=== PATIENT | male | born 1955 | race Caucasian/White ===

== ENCOUNTER → 2020-10-21 11:56 | Outpatient (CLI) | payer MEDICARE, SELFPAY ==
--- NOTE | 2020-10-21 12:03 | XR_ITS ---
PROCEDURE: XR LUMBAR SPINE MIN 4V CLINICAL INDICATION: MUSCLE SPASMS OF BACK Back pain COMPARISON: CR LS5 LUMBAR SPINE 5 VIEWS from 08/13/2015 FINDINGS: There is normal alignment. No acute fracture or dislocation is evident. There is slight loss of height anteriorly of L1 with anterior osteophytes from L1-L5. Left lateral osteophyte at L2-L3 appears somewhat larger. The joint spaces are well-preserved. No significant degenerative/arthritic changes. No erosive changes evident. Other findings:None. IMPRESSION: Degenerative changes with osteophytosis. No change with no acute finding. Dictated by: Tyler Paul MD 10/21/2020 15:16 Tyler Paul MD in [place] 10/21/2020 15:16
== END ==
PROVIDERS: PCP Family Medicine; Visit Provider Family Medicine
DX: M62.830 Muscle spasm of back (principal)
CPT/HCPCS: 72110

== ENCOUNTER 2022-04-19 22:13 | Emergency (ER) | payer MEDICARE, SELFPAY ==
[2022-04-19 22:52] VITALS: BP 196/85; PULSE 75; RESP 20; TEMP 36.8; O2SAT 96; BMI 36.5
--- NOTE | 2022-04-19 23:01 | CT_ITS ---
PROCEDURE INFORMATION: Exam: CT Abdomen And Pelvis Without Contrast Exam date and time: 04/19/22 11:27 PM Age: 67 years old Clinical indication: Abdominal pain; Flank; Left; Additional info: Flank pain TECHNIQUE: Imaging protocol: Computed tomography of the abdomen and pelvis without contrast. Radiation optimization: All CT scans at this facility use at least one of these dose optimization techniques: automated exposure control; mA and/or kV adjustment per patient size (includes targeted exams where dose is matched to clinical indication); or iterative reconstruction. COMPARISON: ABDPELW/O CT ABD PELVIS W/O CONTRAST 08/21/15 10:56 PM FINDINGS: Tubes, catheters and devices: None noted. Lungs: Lung bases appear clear. Heart: No significant coronary calcifications. No cardiomegaly. No significant pericardial effusion. Liver: Fatty liver. No mass. Gallbladder and bile ducts: Normal. No calcified stones. No ductal dilation. Pancreas: Normal. No ductal dilation. Spleen: Normal. No splenomegaly. Adrenal glands: Normal. No mass. Kidneys and ureters: 2 mm distal left ureteral calculus with mild left hydronephrosis and hydroureter. Bilateral perirenal foci of inflammatory change, possibly hemorrhage. 6.4 x 4.8 x 4.2 cm solid right renal mass, subtle but present on comparison with increase in size since 08/21/2015. Concern for renal cell carcinoma. Consider further evaluation with multiphase cross-sectional imaging. Stomach and bowel: Unremarkable. No obstruction. No mucosal thickening. Appendix: No evidence of appendicitis. Intraperitoneal space: Unremarkable. No free air. No significant fluid collection. Retroperitoneal space: No significant retroperitoneal inflammatory changes are noted. Vasculature: Unremarkable. No abdominal aortic aneurysm. Lymph nodes: Unremarkable. No enlarged lymph nodes. Urinary bladder: Unremarkable as visualized. Reproductive: Unremarkable as visualized. Bones/joints: Unremarkable. No acute fracture. Soft tissues: Unremarkable. IMPRESSION: 1. 2 mm distal left ureteral calculus with mild left hydronephrosis and hydroureter. 2. 6.4 x 4.8 x 4.2 cm solid right renal mass, subtle but present on comparison with increase in size since 08/21/2015. Concern for renal cell carcinoma. Consider further evaluation with multiphase cross-sectional imaging. 3. Bilateral perirenal foci of inflammatory change, possibly hemorrhage.
[2022-04-19 23:07] LABS: Microscopic, Urine URINE MICROSCOPIC (MICROSCOPIC)
[2022-04-19 23:08] LABS: Appearance,Urine CLEAR (Clear); Bilirubin,Urine Negative (Negative); Blood, Urine 3+ (Negative); Color,Urine YELLOW (Yellow); Glucose,Urine (UA) Negative (Negative); Ketones,Urine Negative (Negative); Leukocyte Esterase,Urine Negative (Negative); Nitrate,Urine Negative (Negative); PH,Urine 5.5 (5.0-8.5); Protein,Urine Negative (Negative); Specific Gravity, Urine >= 1.030 (1.005-1.030); Urobilinogen,Urine 0.2 EU/dl (0.2)
[2022-04-19 23:30] VITALS: BP 166/59; PULSE 67; O2SAT 94
[2022-04-19 23:32] LABS: Basophils # 0.2 K/mm3 (0-0.2); Basophils % 1.1 % (0.1-2.0); Eosinophils # 0.2 K/mm3 (0.0-0.4); Eosinophils % 1.4 % (0.1-12.0); Hematocrit 53.8 % (42.0-52.0); Hemoglobin 17.5 g/dL (14.1-18.0); Lymphocytes # 1.5 K/mm3 (0.7-4.5); Lymphocytes % 10.3 % (10-50); Mean Corpuscular HGB Conc 32.5 g/dL (31.8-35.4); Mean Corpuscular Hemoglobin 30.4 pg (27.0-31.2); Mean Corpuscular Volume 93.8 fl (80-94); Mean Platelet Volume 7.9 fl (7.4-10.4); Monocytes # 0.8 K/mm3 (0.1-1.0); Monocytes % 5.4 % (1.7-9.3); Neutrophils # 11.7 K/mm3 (1.8-7.8); Neutrophils % 81.9 % (37.0-80.0); Platelet Count 220 K/mm3 (142-424); Red Blood Count 5.74 M/mm3 (4.60-6.20); Red Cell Distribution Width 13.8 % (11.5-17.5); White Blood Count 14.3 K/mm3 (4.8-10.8)
[2022-04-19 23:37] LABS: Bacteria,Urine Trace /lpf
[2022-04-19 23:51] LABS: Alanine Aminotransferase 45 U/L (12-78); Albumin Level 4.2 g/dl (3.5-5.0); Albumin/Globulin Ratio 1.4 (1.1-1.8); Alkaline Phosphatase 114 U/L (38-126); Anion Gap 14.5 mEq/L (5-15); Aspartate Amino Transferase 52 U/L (17-59); Bilirubin,Total 1.6 mg/dl (0.2-1.3); Blood Urea Nitrogen 23 mg/dl (9-20); Carbon Dioxide 28 mmol/L (22.0-30.0); Chloride 101 mmol/L (98-107); Creatinine Clearance Estimated 79 mL/min (50-200); Estimated Glomerular Filt Rate 51 ml/min (>60); GFR (African American) 61 ML/MIN (>60); Glucose 254 mg/dl (74-100); Potassium 4.5 mmoL/L (3.5-5.1); Sodium 139 mmol/L (136-145); Total Protein,Serum 7.2 g/dl (6.3-8.2)
[2022-04-19 23:56] LABS: C-Reactive Protein 6.1 mg/L (0-4)
[2022-04-20] VITALS: BP 167/74; PULSE 60; O2SAT 97
[2022-04-20 00:07] LABS: Erythrocyte Sedimentation Rate 11 mm/hr (0-20)
[2022-04-20 00:10] LABS: Procalcitonin 0.103 ng/mL (0.0-2.0)
[2022-04-20 00:30] VITALS: BP 171/77; PULSE 60; O2SAT 97
[2022-04-20 01:00] VITALS: BP 169/77; PULSE 64; O2SAT 94
--- NOTE | 2022-04-20 01:05 | PC.NURSE ---
Pt states pain is much better and he is ready to go home.
--- NOTE | 2022-04-20 01:12 | HMH.EDABDPAI ---
Discharge Plan Disposition Patient Disposition: Home, Self-Care Prescriptions Prescriptions: New tamsulosin [Flomax] 0.4 mg capsule 0.4 mg PO DAILY Qty: 10 0RF No Action flu vacc qs 2018- (6 mos up) 60 mcg (15 mcg x 4)/0.5 mL suspension 0.5 ml IM ONCE Qty: 0.5 0RF Referrals Follow up/Referrals: Blaire Self MD [Primary Care Provider] - See instructions Vik Pina MD [Staff Physician] - See instructions Clinical Impressions Clinical Impression: Renal colic on left side, Mass of right kidney Instructions Patient Instructions: DI for Kidney Stones Discharge ED Provider: Ayden Olson Abdominal Pain HPI General Chief Complaint: Abdominal Pain Stated Complaint: vomiting and back pain Time Seen by Provider: 04/20/22 01:12 Mode of Arrival: Ambulatory Source of Information: Patient and Medical Record Limitations: No Limitations Description of Symptoms (Recalled from ER Triage Doc. by RN): Pt reports vomiting and left flank pain that radiates to his abdomen that started tonight around 8pm. History of Present Illness HPI narrative: acute lt flank pain with nausea which started tonight complaint: flank pain Onset (ago): hour(s) Consistency: intermittent Severity: moderate Radiation: L flank Associated symptoms: nausea and vomiting Related Data Previous Rx's Medication Instructions Recorded tamsulosin 0.4 mg capsule (Flomax) 0.4 mg PO DAILY #10 caps 04/20/22 Allergies Allergy/AdvReac Type Severity Reaction Status Date / Time No Known Allergies Allergy Unverified 07/26/17 14:36 PFSH PFS Social History Smoking Status: Current every day smoker alcohol intake: never current occupational status: employed Travel in the last 8 weeks: None ROS Obtained: Yes All systems reviewed & no additional complaints except as documented Physical Exam General General appearance: alert Head Head exam: normocephalic Eye Eye exam: Present PERRL and EOMI ENT ENT exam: Present mucous membranes dry Neck Neck exam: Present trachea midline Respiratory Respiratory exam: Present normal lung sounds bilaterally; Absent respiratory distress Cardiovascular Cardiovascular exam: Present regular rate Abdominal Exam Abdominal exam: Present soft; Absent rebound Extremities Exam Extremities exam: Present normal inspection Back Exam Back exam: Present CVA tenderness (L) Neurological Exam Neurological exam: Present alert, oriented X3 and CN II-XII intact Psychiatric Psychiatric exam: Present normal affect Skin Skin exam: Present intact Medical Decision Making Medical Records Medical records reviewed: Yes I reviewed the patient's medical records. Deo Inquiry Pt receiving controlled substance: No Vital Signs: 04/19/22 22:52 04/19/22 23:30 04/20/22 00:00 Temperature 98.2 F Temperature Source Oral Pulse Rate 67 60 Pulse Rate [Right Radial] 75 Respiratory Rate 20 Blood Pressure 166/59 H 167/74 H Blood Pressure [Right Arm] 196/85 H Blood Pressure Mean [Right Arm] 122 Blood Pressure Source [Right Arm] Automatic Cuff Blood Pressure Position [Right Arm] Sitting 02 Sat by Pulse Oximetry 96 94 L 97 Oxygen Delivery Method Room Air 04/20/22 00:30 04/20/22 01:00 Temperature Temperature Source Pulse Rate 60 64 Pulse Rate [Right Radial] Respiratory Rate Blood Pressure 171/77 H 169/77 H Blood Pressure [Right Arm] Blood Pressure Mean [Right Arm] Blood Pressure Source [Right Arm] Blood Pressure Position [Right Arm] 02 Sat by Pulse Oximetry 97 94 L Oxygen Delivery Method Lab Data Lab results reviewed: Yes I reviewed the patient's lab results. Lab Results 04/19/22 23:05: Urine Color Yellow, Urine Appearance Clear, Urine pH 5.5, Ur Specific [place] >= 1.030, Urine Protein Negative, Urine Glucose (UA) Negative, Urine Ketones Negative, Urine Blood 3+, Urine Nitrate Negative, Urine Bilirubin Negative, Urine Urobilinogen 0.2, Ur Leukocyte Estera
[2022-04-20 01:16] VITALS: BP 157/75; PULSE 75; RESP 16; TEMP 36.8; O2SAT 96
[2022-04-20 01:40] LABS: Hemoglobin A1C 7.3 % (4.0-6.0)
== END 2022-04-20 01:39 | disposition home or self-care (01) ==
PROVIDERS: Emergency Provider Emergency Medicine; PCP Family Medicine
DX: N13.2 Hydronephrosis with renal and ureteral calculous obstruction (principal); M54.50 Low back pain, unspecified; N28.89 Other specified disorders of kidney and ureter; F17.210 Nicotine dependence, cigarettes, uncomplicated
CPT/HCPCS: 74176; 80053; 81001; 83036; 84145; 85025; 85651; 86140; 96361; 96374; 96375; 99284; J2405

== ENCOUNTER → 2022-05-18 13:21 | Outpatient (CLI) | payer MEDICARE, SELFPAY ==
[2022-05-18 14:50] LABS: Blood Urea Nitrogen 20 mg/dl (9-20); Estimated Glomerular Filt Rate 60 ml/min (>60); GFR (African American) 73 ML/MIN (>60)
== END ==
PROVIDERS: PCP Family Medicine; Visit Provider Urology
DX: Z01.812 Encounter for preprocedural laboratory examination (principal); D49.511 Neoplasm of unspecified behavior of right kidney
CPT/HCPCS: 36415; 82565; 84520

== ENCOUNTER → 2022-05-19 08:39 | Outpatient (CLI) | payer MEDICARE, SELFPAY ==
--- NOTE | 2022-05-19 08:44 | CT_ITS ---
FINAL REPORT CLINICAL HISTORY: RENAL MASS, recent scan in the ER for kidney stone left and mass seen on right kidney COMPARISON: April 19, 2022 FINDINGS: CT ABDOMEN with and without: PROCEDURE: Axial images were obtained from the lung base to the iliac crest by computed tomography before and after the administration of contrast. Coronal reformatted images were submitted. This study was performed with techniques to keep radiation doses as low as reasonably achievable (ALARA). Individualized dose reduction techniques using automated exposure control or adjustment of mA and/or kV according to the patient's size were employed. ABDOMEN: There is mild bibasilar atelectasis. There is mild fatty infiltration of the liver. There is a 13 mm low-attenuation focus in the left liver dome of uncertain etiology that may represent focal fatty infiltration. There is mild nonspecific gallbladder wall thickening. The spleen, pancreas, and adrenal glands are unremarkable. There is a 4.3 cm cyst in the mid left kidney. There is a 6.4 x 4.0 heterogeneous enhancing mass in the anterior right kidney consistent with renal neoplasm, likely renal cell carcinoma. There is heterogeneous decreased attenuation in the right lower pole renal vein on series 5, image 59 and coronal image 44 consistent with tumor thrombus in this vein. This does not extend to the main right renal vein or IVC. There are multiple mixed attenuation nodules and stranding in the bilateral para renal regions of uncertain etiology that may represent neoplasm or postinflammatory change. There are several borderline sized and mildly enlarged para-aortic lymph nodes measuring up to 1.5 cm that are nonspecific and favored to be reactive over neoplastic. The appendix is unremarkable. IMPRESSION: Anterior right renal mass with an appearance consistent with renal neoplasm. Likely renal cell carcinoma. Tumor thrombus in the lower pole right renal vein without extension to the main right renal vein or IVC. Mixed attenuation nodules and stranding in the bilateral para renal regions of uncertain etiology that may represent neoplasm or postinflammatory change. If indicated some of this would be accessible to CT-guided percutaneous biopsy. Nonspecific para-aortic adenopathy is favored reactive over neoplastic. Left renal cyst. Reviewed, Interpreted and Dictated by Brijesh Wayne III, MD Transcribed by Marty Mason Authenticated and . [facility]
== END ==
PROVIDERS: PCP Family Medicine; Visit Provider Urology
DX: N28.89 Other specified disorders of kidney and ureter (principal)
CPT/HCPCS: 74170; Q9967

== ENCOUNTER → 2022-09-16 10:20 | Outpatient (CLI) | payer MEDICARE, SELFPAY ==
--- NOTE | 2022-09-16 10:24 | CT_ITS ---
FINAL REPORT TECHNIQUE: Axial images through the abdomen and pelvis were performed without contrast.This study was performed with techniques to keep radiation doses as low as reasonably achievable, (ALARA). Individualized dose reduction techniques using automated exposure control or adjustment of mA and/or kV according to the patient's size were employed. CLINICAL HISTORY: RENAL CELL CARCINOMA COMPARISON: 05/19/2022 FINDINGS: ABDOMEN: The lung bases are clear. The heart size is normal. Limited images of the liver demonstrate moderate fatty infiltration. Gallbladder is present and contains sludge or stones in the dependent portion. The spleen is normal. There is mild nodularity to the right adrenal gland which is unchanged from prior exam. Findings are best seen on image 40 of series 3. The aorta is normal in caliber. There is no significant free fluid or adenopathy. There has been interval right nephrectomy. Again seen are multiple cystic structures measuring up to 4.5 cm within the left kidney and multiple perinephric nodules which are unchanged. Similar appearing nodules, previously seen on the right are no longer identified. PELVIS: The appendix is not identified. The urinary bladder is contracted. There is no significant free fluid or adenopathy. IMPRESSION: Interval right nephrectomy. Mild nodularity to the right adrenal gland, stable, favor adenoma. Stones or sludge in the gallbladder. Mild left perinephric nodular densities which are indeterminate but stable from prior exam suggestive of benign etiology. Continued follow-up recommended. Reviewed, Interpreted and Dictated by Jason Bhatt MD Transcribed by Lynsey Wynne Authenticated and [facility]
== END ==
PROVIDERS: PCP Family Medicine; Visit Provider Urology
DX: C64.9 Malignant neoplasm of unspecified kidney, except renal pelvis (principal)
CPT/HCPCS: 74176

== ENCOUNTER → 2023-01-13 13:12 | Outpatient (CLI) | payer MEDICARE, SELFPAY ==
--- NOTE | 2023-01-13 13:19 | XR_ITS ---
FINAL REPORT CLINICAL HISTORY: RENAL CELL CARCINOMA COMPARISON: None FINDINGS: There is evidence of old calcified granulomatous disease. No acute infiltrate. The mediastinum has a normal appearance. The cardiac silhouette is unremarkable. IMPRESSION: No acute process. Reviewed, Interpreted and Dictated by Quinton Hutchison MD Transcribed by Birgit Aceves Authenticated and [facility]
== END ==
PROVIDERS: PCP Family Medicine; Visit Provider Urology
DX: C64.9 Malignant neoplasm of unspecified kidney, except renal pelvis (principal)
CPT/HCPCS: 71046

== ENCOUNTER → 2023-02-09 11:38 | Outpatient (CLI) | payer MEDICARE, SELFPAY ==
--- NOTE | 2023-02-09 11:44 | XR_ITS ---
FINAL REPORT CLINICAL HISTORY: RT HIP AND THIGH PAIN FINDINGS: The right hip Three views were obtained. There is no acute fracture or dislocation. There are [id number] degenerative changes of the right hip. There are mild degenerative changes of the left hip. No soft tissue abnormality is identified. IMPRESSION: Degenerative changes as above, right greater than left. Reviewed, Interpreted and Dictated by Brijesh Wayne III, MD Transcribed by Reina Batista Authenticated and [facility]
== END ==
PROVIDERS: PCP Family Medicine; Visit Provider Family Medicine
DX: M25.551 Pain in right hip (principal); M79.651 Pain in right thigh
CPT/HCPCS: 73502

== ENCOUNTER → 2023-07-07 13:35 | Outpatient (CLI) | payer MEDICARE, SELFPAY ==
--- NOTE | 2023-07-07 13:41 | XR_ITS ---
FINAL REPORT TECHNIQUE: 5 views CLINICAL HISTORY: BACK PAIN, no known injury. COMPARISON: 10/21/2020 FINDINGS: There is mild loss of height of the L1 vertebral body, stable since the prior exam of 2020. There is degenerative disc disease present at the T12 and L1 levels. There is no malalignment. IMPRESSION: No acute process. Mild loss of height of the L1 vertebral body, stable. Reviewed, Interpreted and Dictated by Jason Bhatt MD Transcribed by Doris Lazcano Authenticated and [facility]
== END ==
PROVIDERS: PCP Family Medicine; Visit Provider Family Medicine
DX: M54.9 Dorsalgia, unspecified (principal); M54.50 Low back pain, unspecified
CPT/HCPCS: 72110

== ENCOUNTER 2024-01-16 16:32 | Outpatient (CLI) | payer MEDICARE, SELFPAY ==
--- NOTE | 2024-01-16 16:39 | MR_ITS ---
FINAL REPORT CLINICAL HISTORY: LUMBAGO OF LUMBAR REGION FINDINGS: Multiplanar MR imaging of the lumbar spine was performed without contrast. On the sagittal T2-weighted images, disc degeneration is seen at multiple levels. The vertebral alignment is normal. A mild chronic L1 compression fracture is noted. Several hemangiomas are present. There are mild endplate changes at several levels. The conus has an unremarkable appearance. T12-L1: An annular bulge is present with bilateral facet arthropathy. Mild right neural foraminal narrowing is seen. L1-2: An annular bulge is present. Vertebral osteophytes and bilateral facet arthropathy are present. Mild bilateral neural foraminal narrowing is seen. L2-3: An annular bulge is present. Vertebral osteophytes and bilateral facet arthropathy are present. Severe right and moderate left neural foraminal narrowing is seen. L3-4: An annular bulge is present. Mild bilateral neural foraminal narrowing is seen. L4-5: An annular bulge is present. Moderate bilateral neural foraminal narrowing is seen. L5-S1: An annular bulge is present. There is mild facet arthropathy. A posterior midline annular tear is seen with a small central disc protrusion. Mild bilateral neural foraminal narrowing is seen. IMPRESSION: Multilevel degenerative disc disease and spondylosis as described. Small central L5-S1 disc protrusion. Authenticated and [facility]
[2024-01-16 18:10] LABS: POC Glucose,Bedside 73 (70-110)
[2024-01-16 18:10] LABS: POC Glucose,Bedside 85 (70-110)
== END 2024-01-16 23:59 | disposition home or self-care (01) ==
LOC: RAD 16:32
PROVIDERS: PCP Nurse Practitioner; Visit Provider Nurse Practitioner
DX: M54.40 Lumbago with sciatica, unspecified side (principal)
CPT/HCPCS: 72148; 82962

== ENCOUNTER 2024-01-31 12:05 | Outpatient (CLI) | payer MEDICARE, SELFPAY ==
--- NOTE | 2024-01-31 12:16 | XR_ITS ---
FINAL REPORT CLINICAL HISTORY: RENAL CELL CARCINOMA COMPARISON: 01/13/2023 FINDINGS: No acute pulmonary density is evident. There is no evidence of effusion or other pleural disease. The mediastinum has a normal appearance. There is a calcification in the right hilum stable since the prior exam. The cardiac silhouette is unremarkable. IMPRESSION: Unremarkable chest exam. Reviewed, Interpreted and Dictated by Quinton Hutchison MD Transcribed by Doris Lazcano Authenticated and [facility]
== END 2024-01-31 23:59 | disposition home or self-care (01) ==
LOC: RAD 12:07
PROVIDERS: PCP Family Medicine; Visit Provider Urology
DX: C64.9 Malignant neoplasm of unspecified kidney, except renal pelvis (principal)
CPT/HCPCS: 71046

== ENCOUNTER 2024-06-27 10:08 | Outpatient (CLI) | payer MEDICARE, SELFPAY ==
--- NOTE | 2024-06-27 | CA_ITS ---
APPROVED REPORT Exam: Pharmacologic Technologist: Puja Kaba Ht: 5 ft 8 in Wt: 247 lbs BSA: 2.24 m2 HR: 247 bpm BP: 165/79 mmHg Rhythm: SInus armani, slow R wave progression Medical History Cardiac Risk Factors: HTN, , Diabetes (non-insulin), Smoking Stress Test Details HR Resting HR: 52 bpm Max Heart Rate (APMHR): 151.539549 bpm Target HR (85% APMHR): 128.170608 bpm Recovery HR: 69 bpm BP Resting BP: 165.0/79.0 mmHg Recovery BP: 169.0/76.0 mmHg ECG Resting ECG: sinus armani, slow R wave progression Stress ECG Conclusion During lexiscan pt experinced mild chest pressure. Occasioanl PVC noted. No significant ST changes. Unremarkable lexiscan stress. Electronically signed by : Melissa Toro MD 06/28/2024 01:40:49
--- NOTE | 2024-06-27 10:11 | CA_ITS ---
APPROVED REPORT EXAM: Comprehensive 2D, Doppler, and color-flow Echocardiogram Diving Fisher: Coleen Price RVT Ht: 5 ft 8 in Wt: 247lbs BSA: 2.24 BP: 146/72 mmHg Indications: CP,SOA,HTN,HX RENAL CA 2D Dimensions LA Volume 37.20 mL LA Volume Index 16.61 mL/m2 (M/F) 16-34 M-Mode Dimensions RVDd 3.09 cm (0.9-2.6) LA Diam 4.04 cm (1.9-4.0) LVDd 2.60 cm (3.5-5.7) LVDs 1.87 cm (3.5-5.7) IVSd 1.87 cm (0.6-1.1) PWd 1.18 cm (0.6-1.1) EF (Teich) 56.50% FS 28.10% EDV (Teich) 24.60 mL TAPSE 1.87 (<1.7) ESV (Teich) 10.70 mL LV Diastology E Decel Time 150 (160-240 msec) E/A Ratio 1.1 Aortic Valve GERMÁN Index 1.48 cm2/m2 AoV Peak Clark. 112.0 (50-130 cm/s) AO Peak GR. 5.10 mmHg AO Mean GR. 2.70 (<5 mmHg) AO VTI 22.8 (18-25 cm) GERMÁN (VTI) 3.40 (2.5-4.5 cm2) Mitral Valve MV E Max Clark. 71.0 (40-130 cm/s) MV A Velocity 63.0 (40-130 cm/s) E/A Ratio 1.12 MV PHT 44.0 ms Pulmonary Valve PV Peak Velocity 67.0 (50-150 cm/s) Tricuspid Valve TR P. Velocity 234.00 cm/s RAP Estimate 10.00 mmHg RVSP 31.90 mmHg Left Ventricle The left ventricle is normal size. The left ventricular systolic function is normal. The left ventricular ejection fraction is within the normal range. There is increased LV wall thickness. There is normal LV segmental wall motion. The left ventricular diastolic function is normal. LVEF is 55%. Right Ventricle Right ventricle is mildly dilated. The right ventricular systolic function is normal. Atria The left atrium size is normal. The right atrium size is normal. There is no Doppler evidence of interatrial shunt. The aortic valve opens well. Aortic Valve There is no aortic valvular stenosis. No aortic regurgitation is present. Mitral Valve The mitral valve is normal in structure. No evidence of mitral valve stenosis. Trace mitral valve regurgitation noted. Tricuspid Valve The tricuspid valve leaflets are thin and pliable. Trace tricuspid regurgitation. There is insufficient TR jet to estimate RVSP. Pulmonic Valve The pulmonary valve is normal in structure. Trace pulmonic regurgitation or Great Vessels The aortic root is normal in size. IVC is normal in size and collapses >50% with inspiration. Pericardium There is no pericardial effusion. Other Information Study Quality: Fair Conclusion Normal biventricular systolic function. Mild RV dilation. No significant valvular stenosis or regurgitation. Electronically signed by : Melissa Toro MD 07/03/2024 14:06:15
--- NOTE | 2024-06-27 10:37 | NM_ITS ---
APPROVED REPORT Exam: Nuclear Stress Test Indication: htn, dibetes, hyperlipidemia, tob use, fm. hx., c.p., sob, fatigue Patient Location: Outpatient Stress Tech: Puja [facility] Tech:Kate Foster ARRCathi RT (R)(N)(M) Ht: 5 ft 8 in Wt: 240 lbs HR: 52 bpm BP: 165/79 mmHg BSA: 2.21 m2 TID: 1.19 BMI: 36.4 History: htn, dibetes, hyperlipidemia, tob use, fm. hx., c.p., sob, fatigue Procedure: Patient received 0.4 mg of intravenous Lexiscan, resting heart rate 52 bpm, resting blood pressure 165/79 mmHg, with Lexiscan maximum heart rate achieved was 72 bpm which is % of the maximum predicted heart rate and blood pressure was 176/84 mmHg. With Lexiscan, patient denied any complaint of chest pain. Cardiac Stress and Resting SPECT Images: Cardiac Stress and Resting SPECT images were obtained using technetium 99m Myoview 32.0 mCi stress and 10.85 mCi at rest. Resting and stress imaging in supine and prone positions demonstrate no evidence of fixed or reversible perfusion defects. Gated imaging demonstrates normal global and regional LV systolic function. LVEF is calculated at 58%. Conclusion: No evidence of fixed or reversible perfusion defects. Gated imaging demonstrates normal global and regional LV systolic function. LVEF is calculated at 58%. Electronically signed by : Melissa Toro MD 06/28/2024 01:41:55
[2024-06-27] MEDS: SODIUM CHLORIDE 0.9% 10ML SYR (RAD ONLY) 10 ML IV ×2 (10:45→12:10)
[2024-06-27] MEDS: REGADENOSON 0.4MG/5ML SYRINGE 0.4 MG IV (12:10)
[2024-06-27] MEDS: ISOTOPE MYOVIEW (PER STUDY) 1 DOSE IV (13:27)
== END 2024-06-27 23:59 | disposition home or self-care (01) ==
LOC: RT 10:09
PROVIDERS: PCP Family Medicine; Visit Provider Nurse Practitioner Family
DX: I51.7 Cardiomegaly (principal); R06.02 Shortness of breath; R07.9 Chest pain, unspecified; R94.31 Abnormal electrocardiogram [ECG] [EKG]
CPT/HCPCS: 78452; 93017; 93018; 93306; A9502; J2785

== ENCOUNTER 2024-07-24 13:46 | Outpatient (CLI) | payer MEDICARE, SELFPAY ==
--- NOTE | 2024-07-24 13:51 | XR_ITS ---
FINAL REPORT CLINICAL HISTORY: RENAL CELL CARCINOMA COMPARISON: 01/31/2024 FINDINGS: 2 views of the chest were obtained . The heart is normal in size. The mediastinum is within normal limits. There is no acute lung disease. There is no pneumothorax. Osseous structures are unremarkable. IMPRESSION: No acute cardiopulmonary process, unchanged from prior exam. Reviewed, Interpreted and Dictated by Quinton Hutchison MD Transcribed by Lynsey Wynne Authenticated and [facility]
== END 2024-07-24 23:59 | disposition home or self-care (01) ==
LOC: RAD 13:47
PROVIDERS: PCP Family Medicine; Visit Provider Urology
DX: C64.9 Malignant neoplasm of unspecified kidney, except renal pelvis (principal)
CPT/HCPCS: 71046

== ENCOUNTER 2025-02-15 14:02 | Inpatient (IN) | payer MEDICARE, SELFPAY ==
[2025-02-15] VITALS (22 sets, daily range): BP systolic 140–198; BP diastolic 76–93; PULSE 58–77; RESP 13–23; TEMP 36.4–36.8; O2SAT 90–97; BMI 36.5; BMI 37.9
--- NOTE | 2025-02-15 14:04 | ECG_ITS ---
APPROVED REPORT Exam: Resting ECG HR:57 bpm ECG Measurements Heart Rate 57 AXES MS 176 P 56 QRSd 111 QRS 48 QT 409 T 86 QTc [address] elevation in II, III, AVF ST depression in 1, AVL Acute myocardial infarction Electronically signed by : Bro Gutierrez, 02/15/2025 16:48:00
--- NOTE | 2025-02-15 14:05 | PC.NURSE ---
pt placed in gown, shaved and placed on Zoll at this time. paged cardiology
[2025-02-15] MEDS: HEPARIN SODIUM 5,000 UNIT/ML VIAL 10000 UNIT IV (14:10)
[2025-02-15] MEDS: ASPIRIN 81MG CHEWABLE TABLET 324 MG PO (14:10)
--- NOTE | 2025-02-15 14:10 | IR_ITS ---
APPROVED REPORT Patient Location: Emergent Director Market Research: Ayden Banks RT (R) PROCEDURES 1. Left heart catheterization 2. Selective coronary arteriography 3. Left ventriculography 4. PTCA/stent of the right coronary artery 5. PTCA/stent of the posterior lateral branch of the right coronary artery INDICATION 1. Acute myocardial infarction, 2. Coronary artery disease SCAI INDICATION Patient is 69-year-old white male who presented with an acute myocardial infarction. Acute chest pain. Inferior elevation with reciprocal changes. Secondary to this patient was given heparin and Brilinta and taken directly to the cardiac catheterization laboratory. Informed consent was obtained prior to the procedure. COMPLICATIONS NONE Estimated Blood Loss: LESS THAN 10 ML TECHNIQUE One percent lidocaine used to anesthetize the right anterior aspect of the wrist. The right radial artery was accessed via the Seldinger technique. A 6 Maori sheath was placed in the right radial artery. 2.5 mg of Verapamil, 800 mcg of nitroglycerin, 1mg Lidocaine and 5000 U Heparin were given through the arterial sheath. The JL3 catheter was also used to perform left heart catheterization, left ventriculogram and selective coronary angiogram. At the end of the procedure the sheath was removed good hemostasis was achieved using Traclet band, patient was transferred to the postop holding area in stable condition. I also used a JL 3.5 catheter ANGIOGRAPHIC RESULTS The left main artery Angiographically normal The left anterior descending artery Smooth 20 to 30% napkin ring mid stenosis with normal flow into the distal vessel and normal flow to the diagonal branches The circumflex artery Small in size with mild luminal irregularities. Moderate size ramus intermedius with mild luminal irregularities The right coronary artery Large and dominant. Mild ectasia of the proximal and mid vessel with 100% distal occlusion. DWAYNE 0 flow to the posterior descending artery and posterior lateral branch The OBRIEN ventriculogram reveals Preserved normal left ventricular systolic function at 60%. No wall motion and maladies. No gradient on pullback of the catheter. No noted mitral insufficiency The left ventricular end-diastolic pressure 20 I immediately engaged the right coronary artery after access of the right radial artery. I did this with the Poppa catheter. Wired into the right coronary artery. Predilated with a 2.0 x 20 mm balloon in [address]'s [address] elevation started to improve. I realized I was in a branch. Pulm a wire back and placed it down the posterior lateral branch was of the largest of the 2 arteries. At this point I could see a small thrombus in the distal right coronary artery just prior to the bifurcation of the posterior descending artery and a large posterior lateral branch. I stented the distal right coronary artery with a 3.0 x 38 mm drug-eluting stent. This resulted in 0% residual stenosis and I did have brisk DWAYNE-3 flow down the posterior descending artery and posterolateral branches. The proximal posterior lateral branch also had a small thrombus at that level creating a 90% stenosis. Placed 1 more stent in the proximal posterior lateral branch of the right coronary artery which was a 3.0 x 18 mm drug-eluting stent. This resulted in 0% residual stenosis. No compromise of the posterior descending artery. Excellent DWAYNE-3 flow. Complete resolution of ST elevation. ACT was checked prior to the procedure which was greater than 250. I gave an additional 1000 of heparin. After the procedure the ACT dropped to around 215. Additional 2000 of heparin was given IMPRESSION 1. Critical 100% acute occlusion of the distal right coronary artery 2. Mild diffuse disease in the left coronary system 3. Preserved normal left ventricular systolic function 4. Elevated left ventricular end-diastolic pressure 5. Successful angioplasty and stenting of the distal right coronary artery resulting in 0% residual stenosis and DWAYNE-3 flow 6. Successful angioplasty and stenting of the proximal posterior lateral branch of the right coronary artery resulting in 0% residual stenosis and DWAYNE-3 flow 7. Successful placement of a radial band on the right radial artery PLAN 1. Patient was given Brilinta in the emergency room 180 mg. He will remain on 90 mg twice daily. Echocardiogram will be obtained. Aggressive risk factor modification. Patient now has full revascularization. Left ventricular function appears to be preserved. 1 dose of IV Lasix. Follow-up in cardiology clinic 1 to 2 weeks after discharge. Statin therapy should be initiated as well as metoprolol and CROW inhibitor as tolerated. Electronically signed by : Fredi Georges MD 02/15/2025 15:24:41
--- NOTE | 2025-02-15 14:13 | PC.NURSE ---
324mg chewable aspirin given per Eyal Gutierrez MD verbal order
[2025-02-15] MEDS: MORPHINE 4MG/ML SYRINGE 4 MG IV (14:14)
[2025-02-15] MEDS: ONDANSETRON 4MG/2ML VIAL 4 MG IV (14:14)
[2025-02-15 14:24] LABS: Hematocrit 52.9 % (42.0-52.0); Hemoglobin 17.7 g/dL (14.1-18.0); Immature Granulocytes % 0.6 %; Mean Corpuscular HGB Conc 33.5 g/dL (31.8-35.4); Mean Corpuscular Hemoglobin 28.7 pg (27.0-31.2); Mean Corpuscular Volume 85.9 fl (80-94); Nucleated Red Blood Cells % 0 %; Platelet Count 220 K/mm3 (142-424); Red Blood Count 6.16 M/mm3 (4.60-6.20); Red Cell Distribution Width-SD 39.9 fL; White Blood Count 12.7 K/mm3 (4.8-10.8)
--- NOTE | 2025-02-15 14:30 | PC.NURSE ---
house notified of admission
--- NOTE | 2025-02-15 14:30 | SUR.OPER ---
Per ED and stemi hand off sheet patient recieved 324 asa, 10,000 heparin, and 180 of brilinta prior to arrival in cathlab
[2025-02-15 14:31] LABS: Alanine Aminotransferase 32 U/L (12-78); Albumin Level 4.8 g/dl (3.5-5.0); Albumin/Globulin Ratio 1.3 (1.1-1.8); Alkaline Phosphatase 122 U/L (38-126); Anion Gap 19.3 mEq/L (5-15); Aspartate Amino Transferase 34 U/L (17-59); Bilirubin,Total 1.5 mg/dl (0.2-1.3); Blood Urea Nitrogen 26 mg/dl (9-20); Calcium 11.0 mg/dl (8.4-10.2); Carbon Dioxide 26 mmol/L (22.0-30.0); Chloride 101 mmol/L (98-107); Creatinine Clearance Estimated 51 mL/min (50-200); Creatinine,Serum 2.10 mg/dl (0.66-1.25); Estimated Glomerular Filt Rate 31 ml/min (>60); GFR (African American) 38 ML/MIN (>60); Globulin 3.6 g/dL (1.3-3.2); Glucose 170 mg/dl (74-100); Potassium 4.3 mmoL/L (3.5-5.1); Sodium 142 mmol/L (136-145); Total Protein,Serum 8.4 g/dl (6.3-8.2)
--- NOTE | 2025-02-15 14:31 | HMH.PHAINT1 ---
Pharmacy Intervention Comments: MEDICATION RECONCILIATION COMPLETED ON PATIENT USING EXTERNAL FILL HISTORY FROM PHARMACY. -KEN GO, TALD
--- OUTSIDE RECORDS SUMMARY | 2025-02-15 14:32 | XMS_ITS | Clinical Summary ---
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 Arthritis Family History Medical History Relation Name Comments Coronary artery disease Brother 1 Coronary artery disease Father Cancer Mother Diabetes Mother Breast cancer Sister 1 Relation Name Status Comments Brother 1 Alive Brother 2 Alive Brother 3 Alive Brother 4 Brother 5 Brother 6 Father (Age 71) Mother (Age 81) Sister 1 Alive Sister 2 Alive Social History Tobacco Use Types Packs/Day Years Used Date Smoking Tobacco: Some Days Cigarettes 0.3 55 Smokeless Tobacco: Current Snuff Tobacco Cessation:Ready to Q uit: Yes Alcohol Use Standard Drinks/Week Comments Yes 2 (1 standard drink = 0.6 oz pur e alcohol) Social Connection and Isolat ion Panel [NHANES] Answer Date Recorded In a typical week, how many times do you talk on the phone with family, friends, or neighbors? More than three times a week 06/01/2022 How often do you get togethe r with friends or relatives? Twice a week 06/01/2022 How often do you attend chur ch or mormon services? Never 06/01/2022 Do you belong to any clubs o r organizations such as islam groups, unions, fraternal or athletic groups, or school groups? No 06/01/2022 Attends Club or Organization Meetings Not on bubba e 06/01/2022 Are you , , di vorced, , never , or living with a partner? 06/01/2022 Overall Financial Resource Strain (CARDIA) Answe r Date Recorded How hard is it for you to pa y for the very basics like food, housing, medical care, and heating? Not hard at all 06/01/2022 Exercise Vital Sign Answer Date Recorde d On average, how many days pe r week do you engage in moderate to strenuous exercise (like a brisk walk)? 4 days 06/01/2022 On average, how many minutes do you engage in exercise at this level? 150+ min 06/01/2022 Hunger Vital Sign Answer Date Recorded Within the past 12 months, y ou worried that your food would run out before you got the money to buy more. Never true 06/01/20 22 Within the past 12 months, t he food you bought just didn't last and you didn't have money to get more. Never true 06/01/2022 PRAPARE - Transportation Answer Date Re corded In the past 12 months, has l ack of transportation kept you from medical appointments or from getting medications? No 06/05/2022 Lack of Transportation (Non-Medical) Not on file 06/05/2022 Food Insecurity Answer Date Recorded Food run out past 12 months Not on file 08/08 Food did not last past 12 months Not on file 08/26/2023 Employment Answer Date Recorded Help finding and keeping a job Not on file 0 08/26/2023 Family and Community Support Answer Brooks e Recorded Help with Day to Day Activities Not on file 08/26/2023 Feeling Lonely or Isolated Not on file 08/26 Educational Attainment Answer Date Lauro rded Speak language other than Faroese at home Not on file 08/26/2023 Want help with school or training Not on file 08/26/2023 Substance Use Answer Date Recorded Used prescription meds for non-medical reasons N ot on file 08/26/2023 Used illegal drugs past 12 months Not on file 08/26/2023 Sex and Gender Information Value Date Recorded Sex Assigned at Not on file Legal Sex Male 6:55 PM CDT Gender Identity Not on file Sexual Orientation Not on file Last Filed Vital Signs Vital Sign Reading Time Taken Comments Blood Pressure 154/85 06/05/2022 5:00 PM EDT Pulse 111 06/05/2022 9:57 AM EDT Temperature 36.4 C (97.5 F) 06/05/2022 9:57 AM EDT Respiratory Rate 16 06/05/2022 9:57 AM EDT Oxygen Saturation 91% 06/05/2022 9:57 AM EDT Inhaled Oxygen Concentration - - Weight 108.9 kg (240 lb) 06/03/2022 8:27 AM EDT Height 172.7 cm (5' 8 ) 06/03/2022 8:27 AM EDT Body Mass Index 36.49 06/03/2022 8:27 AM EDT Plan of Treatment Health Maintenance Due Date Last Done Comments Medicare Initial AWV [id number] CT Colonography 1955 Colonoscopy 1955 Colorectal Cancer Screening 1955 FOBT/FIT 1955 Fit-DNA (Cologuard) 1955 Sigmoidoscopy 1955 Depression Screening (12+) 1967 Hepatitis C Screening 1973 DTAP/TDAP/TD VACCINES (1 - Tdap) 1974 Pneumococcal 50+ years (1 of 2 - PCV) 1974 Shingles Vaccine (Zoster) (1 of 2) 1974 Tobacco Cessation Counseling and Screening (12+) 06/01/2023 06/01/2022 COVID-19 VACCINE (3 - season) 04/08/202401/2021, 10/24/2020 Falls Risk Screening 08/08/2024 Influenza Vaccine (#1) 2025 Respiratory Syncytial Virus (RSV) Adult or (1 - 1-dose 75+ series) 2030 Insurance MEDICARE [place] [address] [place] [address] SUPP Care Teams Manager Utilization Review Relationship Specialty Start Date End Date Humberto Self MD [address] [place] [address] PCP - General Family Medicine 06/01/22
--- OUTSIDE RECORDS SUMMARY | 2025-02-15 14:32 | XMS_ITS | Referral Summary ---
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 Never 06/01/2022 Do you belong to any clubs o r organizations such as quaker groups, unions, fraternal or athletic groups, or [...] money to buy more. Never true 06/01/20 Within the past 12 months, t he [...] Date Lauro rded Speak language other than Ecuadorean at home Not on file 08/26/2023 Want [...] 06/03/2022 8:27 AM EDT Plan of Treatment Not on file Insurance MEDICARE PART A B Care Teams Loan Secretary Relationship Specialty Start Date End Date Humberto Self MD [address] [place] [address] PCP - General Family Medicine 06/01/22
--- OUTSIDE RECORDS SUMMARY | 2025-02-15 14:33 | XMS_ITS | Data Portability ---
Author Organization [facility] [place] [facility] Address [address] [place] [address] Care Team Providers Care Area Counselor Name Role Phone ROCCO SAUNDERS Primary Care Provider Assessment No assessment recorded. Plan of Treatment Reminders Order Date Submit Date Provider Last Modified By Organization Details Last Modified Time Details Appointments None recorded. Lab urinalysis panel, auto 2023 024 [email or web address] [facility], [address], [place], [address], 4 22:48:39 urinalysis panel, auto 2023 024 [facility], [address], [address], [place], [address], 4 23:57:39 urinalysis panel, auto 2022 023 [email or web address] [facility], [address], [address], [place], [address], 3 21:13:29 urinalysis panel, auto 2022 023 [email or web address] [facility], [address], [address], [place], [address], 3 14:38:55 urinalysis panel, auto 2022 023 [email or web address] [facility], [address], [address], [place], [address], 3 15:08:07 Referral None recorded. Procedures None recorded. Surgeries None recorded. Imaging None recorded. Medication Orders tamsulosin 0.4 mg capsule 2022 023 [facility], [address], [address], [place], [address], 15:16:28 Patient TargetsNo targets recorded. Patient InstructionsNo instructions recorded. Reason for Referral None Reported. Results Created Date Observation Date Name Description Value Unit Range Abnormal Flag Note LastModifiedBy Organization Detail LastModifiedTime 10/05/1910/05/2022 urina lysis panel , auto Unknown Analyte Clean Catch Not Available [facility] [address], [place], [address], 10/05/2022 14:37:56 10/05/19 23 10/05/2022 urina lysis panel , auto Unknown Analyte Yellow Not Available [facility] [address], [place], [address], 10/05/2022 14:37:56 10/05/19 23 10/05/2022 urina lysis panel , auto Unknown Analyte Clear Not Available [facility] [address], [place], [address], 10/05/2022 14:37:56 10/05/19 23 10/05/2022 urina lysis panel , auto Unknown Analyte 1.025 Not Available [facility] [address], [place], [address], 10/05/2022 14:37:56 10/05/19 23 10/05/2022 urina lysis panel , auto Unknown Analyte 1.003- 1.035 Not Available [facility] [address], [place], [address], 10/05/2022 14:37:56 10/05/19 23 10/05/2022 urina lysis panel , auto Unknown Analyte 5.0 Not Available [facility] [address], [place], [address], 10/05/2022 14:37:56 10/05/19 23 10/05/2022 urina lysis panel , auto Unknown Analyte 5.0-8. 0 Not Available [facility] [address], [place], [address], 10/05/2022 14:37:56 10/05/19 23 10/05/2022 urina lysis panel , auto Unknown Analyte Negati ve Not Available [facility] [address], [place], [address], 10/05/2022 14:37:56 10/05/19 23 10/05/2022 urina lysis panel , auto Unknown Analyte Negati ve Not Available [facility] [address], [place], [address], 10/05/2022 14:37:56 10/05/19 23 10/05/2022 urina lysis panel , auto Unknown Analyte Negati ve Not Available Replaced by [facility] [address], [place], [address], 10/05/2022 14:37:56 10/05/19 23 10/05/2022 urina lysis panel , auto Unknown Analyte Negati ve Not Available [facility] [address], [place], [address], 10/05/2022 14:37:56 10/05/19 23 10/05/2022 urina lysis panel , auto Unknown Analyte 30 mg/dl (+) Not Available [facility] [address], [place], [address], 10/05/2022 14:37:56 10/05/19 23 10/05/2022 urina lysis panel , auto Unknown Analyte Negati ve Not Available [facility] [address], [place], [address], 10/05/2022 14:37:56 10/05/19 23 10/05/2022 urina lysis panel , auto Unknown Analyte Normal Not Available [facility] [address], [place], [address], 10/05/2022 14:37:56 10/05/19 23 10/05/2022 urina lysis panel , auto Unknown Analyte Normal Not Available [facility] [address], [place], [address], 10/05/2022 14:37:56 10/05/19 23 10/05/2022 urina lysis panel , auto Unknown Analyte Negati ve Not Available [facility] [address], [place], [address], 10/05/2022 14:37:56 10/05/19 23 10/05/2022 urina lysis panel , auto Unknown Analyte Negati ve Not Available [facility] [address], [place], [address], 10/05/2022 14:37:56 10/05/19 23 10/05/2022 urina lysis panel , auto Unknown Analyte Normal Not Available [facility] [address], [place], [address], 10/05/2022 14:37:56 10/05/19 23 10/05/2022 urina lysis panel , auto Unknown Analyte Normal 1 mg/dl Not Available [facility] [address], [place], [address], 10/05/2022 14:37:56 10/05/19 23 10/05/2022 urina lysis panel , auto Unknown Analyte Negati ve Not Available [facility] [address], [place], [address], 10/05/2022 14:37:56 10/05/19 23 10/05/2022 urina lysis panel , auto Unknown Analyte Negati ve Not Available [facility] [address], [place], [address], 10/05/2022 14:37:56 10/05/19 23 10/05/2022 urina lysis panel , auto Unknown Analyte Negati ve Not Available [facility] [address], [place], [address], 10/05/2022 14:37:56 10/05/19 23 10/05/2022 urina lysis panel , auto Unknown Analyte Negati ve Not Available [facility] [address], [place], [address], 10/05/2022 14:37:56 01/18/20 23 01/17/2023 urina lysis panel , auto Unknown Analyte Clean Catch Not Available [facility] [address], [place], [address], 01/17/2023 14:18:43 01/18/20 23 01/17/2023 urina lysis panel , auto Unknown Analyte Yellow Not Available [facility] [address], [place], [address], 01/17/2023 14:18:43 01/18/20 23 01/17/2023 urina lysis panel , auto Unknown Analyte Clear Not Available [facility] [address], [place], [address], 01/17/2023 14:18:43 01/18/20 23 01/17/2023 urina lysis panel , auto Unknown Analyte 1.020 Not Available [facility] [address], [place], [address], 01/17/2023 14:18:43 01/18/20 23 01/17/2023 urina lysis panel , auto Unknown Analyte 1.003- 1.035 Not Available [facility] [address], [place], [address], 01/17/2023 14:18:43 01/18/20 23 01/17/2023 urina lysis panel , auto Unknown Analyte 5.0 Not Available [facility] [address], [place], [address], 01/17/2023 14:18:43 01/18/20 23 01/17/2023 urina lysis panel , auto Unknown Analyte 5.0-8. 0 Not Available [facility] [address], [place], [address], 01/17/2023 14:18:43 01/18/20 23 01/17/2023 urina lysis panel , auto Unknown Analyte Negati ve Not Available [facility] [address], [place], [address], 01/17/2023 14:18:43 01/18/20 23 01/17/2023 urina lysis panel , auto Unknown Analyte Negati ve Not Available [facility] [address], [place], [address], 01/17/2023 14:18:43 01/18/20 23 01/17/2023 urina lysis panel , auto Unknown Analyte Negati ve Not Available [facility] [address], [place], [address], 01/17/2023 14:18:43 01/18/20 23 01/17/2023 urina lysis panel , auto Unknown Analyte Negati ve Not Available [facility] [address], [place], [address], 01/17/2023 14:18:43 01/18/20 23 01/17/2023 urina lysis panel , auto Unknown Analyte Trace Not Available [facility] [address], [place], [address], 01/17/2023 14:18:43 01/18/20 23 01/17/2023 urina lysis panel , auto Unknown Analyte Negati ve Not Available [facility] [address], [place], [address], 01/17/2023 14:18:43 01/18/20 23 01/17/2023 urina lysis panel , auto Unknown Analyte 250 mg/dl Not Available [facility] [address], [place], [address], 01/17/2023 14:18:43 01/18/20 23 01/17/2023 urina lysis panel , auto Unknown Analyte Normal Not Available [facility] [address], [place], [address], 01/17/2023 14:18:43 01/18/20 23 01/17/2023 urina lysis panel , auto Unknown Analyte Negati ve Not Available [facility] [address], [place], [address], 01/17/2023 14:18:43 01/18/20 23 01/17/2023 urina lysis panel , auto Unknown Analyte Negati ve Not Available [facility] [address], [place], [address], 01/17/2023 14:18:43 01/18/20 23 01/17/2023 urina lysis panel , auto Unknown Analyte Normal Not Available [facility] [address], [place], [address], 01/17/2023 14:18:43 01/18/20 23 01/17/2023 urina lysis panel , auto Unknown Analyte Normal 1 mg/dl Not Available [facility] [address], [place], [address], 01/17/2023 14:18:43 01/18/20 23 01/17/2023 urina lysis panel , auto Unknown Analyte Negati ve Not Available [facility] [address], [place], [address], 01/17/2023 14:18:43 01/18/20 23 01/17/2023 urina lysis panel , auto Unknown Analyte Negati ve Not Available [facility] [address], [place], [address], 01/17/2023 14:18:43 01/18/20 23 01/17/2023 urina lysis panel , auto Unknown Analyte Trace Not Available [facility] [address], [place], [address], 01/17/2023 14:18:43 01/18/20 23 01/17/2023 urina lysis panel , auto Unknown Analyte Negati ve Not Available [facility] [address], [place], [address], 01/17/2023 14:18:43 07/19/20 23 07/19/2023 urina lysis panel , auto Unknown Analyte Clean Catch Not Available Replaced by [facility] [address], [place], [address], 07/19/2023 14:40:49 07/19/20 23 07/19/2023 urina lysis panel , auto Unknown Analyte Yellow Not Available [facility] [address], [place], [address], 07/19/2023 14:40:49 07/19/20 23 07/19/2023 urina lysis panel , auto Unknown Analyte Clear Not Available [facility] [address], [place], [address], 07/19/2023 14:40:49 07/19/20 23 07/19/2023 urina lysis panel , auto Unknown Analyte 1.015 Not Available [facility] [address], [place], [address], 07/19/2023 14:40:49 07/19/20 23 07/19/2023 urina lysis panel , auto Unknown Analyte 1.003- 1.035 Not Available [facility] [address], [place], [address], 07/19/2023 14:40:49 07/19/20 23 07/19/2023 urina lysis panel , auto Unknown Analyte 5.0 Not Available [facility] [address], [place], [address], 07/19/2023 14:40:49 07/19/20 23 07/19/2023 urina lysis panel , auto Unknown Analyte 5.0-8. 0 Not Available [facility] [address], [place], [address], 07/19/2023 14:40:49 07/19/20 23 07/19/2023 urina lysis panel , auto Unknown Analyte Negati ve Not Available [facility] [address], [place], [address], 07/19/2023 14:40:49 07/19/20 23 07/19/2023 urina lysis panel , auto Unknown Analyte Negati ve Not Available [facility] [address], [place], [address], 07/19/2023 14:40:49 07/19/20 23 07/19/2023 urina lysis panel , auto Unknown Analyte Negati ve Not Available [facility] [address], [place], [address], 07/19/2023 14:40:49 07/19/20 23 07/19/2023 urina lysis panel , auto Unknown Analyte Negati ve Not Available [facility] [address], [place], [address], 07/19/2023 14:40:49 07/19/20 23 07/19/2023 urina lysis panel , auto Unknown Analyte Negati ve Not Available [facility] [address], [place], [address], 07/19/2023 14:40:49 07/19/20 23 07/19/2023 urina lysis panel , auto Unknown Analyte Negati ve Not Available [facility] [address], [place], [address], 07/19/2023 14:40:49 07/19/20 23 07/19/2023 urina lysis panel , auto Unknown Analyte >1000 mg/dl Not Available [facility] [address], [place], [address], 07/19/2023 14:40:49 07/19/20 23 07/19/2023 urina lysis panel , auto Unknown Analyte Normal Not Available [facility] [address], [place], [address], 07/19/2023 14:40:49 07/19/20 23 07/19/2023 urina lysis panel , auto Unknown Analyte Negati ve Not Available [facility] [address], [place], [address], 07/19/2023 14:40:49 07/19/20 23 07/19/2023 urina lysis panel , auto Unknown Analyte Negati ve Not Available [facility] [address], [place], [address], 07/19/2023 14:40:49 07/19/20 23 07/19/2023 urina lysis panel , auto Unknown Analyte Normal Not Available [facility] [address], [place], [address], 07/19/2023 14:40:49 07/19/20 23 07/19/2023 urina lysis panel , auto Unknown Analyte Normal 1 mg/dl Not Available [facility] [address], [place], [address], 07/19/2023 14:40:49 07/19/20 23 07/19/2023 urina lysis panel , auto Unknown Analyte Negati ve Not Available [facility] [address], [place], [address], 07/19/2023 14:40:49 07/19/20 23 07/19/2023 urina lysis panel , auto Unknown Analyte Negati ve Not Available [facility] [address], [place], [address], 07/19/2023 14:40:49 07/19/20 23 07/19/2023 urina lysis panel , auto Unknown Analyte Negati ve Not Available [facility] [address], [place], [address], 07/19/2023 14:40:49 07/19/20 23 07/19/2023 urina lysis panel , auto Unknown Analyte Negati ve Not Available [facility] [address], [place], [address], 07/19/2023 14:40:49 02/01/20 24 02/01/2024 urina lysis panel , auto Unknown Analyte Clean Catch Not Available [facility] [address], [place], [address], 02/01/2024 16:07:53 02/01/20 24 02/01/2024 urina lysis panel , auto Unknown Analyte Yellow Not Available [facility] [address], [place], [address], 02/01/2024 16:07:53 02/01/20 24 02/01/2024 urina lysis panel , auto Unknown Analyte Clear Not Available [facility] [address], [place], [address], 02/01/2024 16:07:53 02/01/20 24 02/01/2024 urina lysis panel , auto Unknown Analyte 1.020 Not Available [facility] [address], [place], [address], 02/01/2024 16:07:53 02/01/20 24 02/01/2024 urina lysis panel , auto Unknown Analyte 1.003- 1.035 Not Available [facility] [address], [place], [address], 02/01/2024 16:07:53 02/01/20 24 02/01/2024 urina lysis panel , auto Unknown Analyte 5.0 Not Available [facility] [address], [place], [address], 02/01/2024 16:07:53 02/01/20 24 02/01/2024 urina lysis panel , auto Unknown Analyte 5.0-8. 0 Not Available [facility] [address], [place], [address], 02/01/2024 16:07:53 02/01/20 24 02/01/2024 urina lysis panel , auto Unknown Analyte Negati ve Not Available [facility] [address], [place], [address], 02/01/2024 16:07:53 02/01/20 24 02/01/2024 urina lysis panel , auto Unknown Analyte Negati ve Not Available [facility] [address], [place], [address], 02/01/2024 16:07:53 02/01/20 24 02/01/2024 urina lysis panel , auto Unknown Analyte Negati ve Not Available [facility] [address], [place], [address], 02/01/2024 16:07:53 02/01/20 24 02/01/2024 urina lysis panel , auto Unknown Analyte Negati ve Not Available [facility] [address], [place], [address], 02/01/2024 16:07:53 02/01/20 24 02/01/2024 urina lysis panel , auto Unknown Analyte Negati ve Not Available [facility] [address], [place], [address], 02/01/2024 16:07:53 02/01/20 24 02/01/2024 urina lysis panel , auto Unknown Analyte Negati ve Not Available [facility] [address], [place], [address], 02/01/2024 16:07:53 02/01/20 24 02/01/2024 urina lysis panel , auto Unknown Analyte Normal Not Available [facility] [address], [place], [address], 02/01/2024 16:07:53 02/01/20 24 02/01/2024 urina lysis panel , auto Unknown Analyte Normal Not Available [facility] [address], [place], [address], 02/01/2024 16:07:53 02/01/20 24 02/01/2024 urina lysis panel , auto Unknown Analyte Negati ve Not Available [facility] [address], [place], [address], 02/01/2024 16:07:53 02/01/20 24 02/01/2024 urina lysis panel , auto Unknown Analyte Negati ve Not Available [facility] [address], [place], [address], 02/01/2024 16:07:53 02/01/20 24 02/01/2024 urina lysis panel , auto Unknown Analyte Normal Not Available [facility] [address], [place], [address], 02/01/2024 16:07:53 02/01/20 24 02/01/2024 urina lysis panel , auto Unknown Analyte Normal 1 mg/dl Not Available [facility] [address], [place], [address], 02/01/2024 16:07:53 02/01/20 24 02/01/2024 urina lysis panel , auto Unknown Analyte Negati ve Not Available [facility] [address], [place], [address], 02/01/2024 16:07:53 02/01/20 24 02/01/2024 urina lysis panel , auto Unknown Analyte Negati ve Not Available [facility] [address], [place], [address], 02/01/2024 16:07:53 02/01/20 24 02/01/2024 urina lysis panel , auto Unknown Analyte Negati ve Not Available [facility] [address], [place], [place], [address], 02/01/2024 16:07:53 02/01/20 24 02/01/2024 urina lysis panel , auto Unknown Analyte Negati ve Not Available [facility] [address], [place], [address], 02/01/2024 16:07:53 07/25/20 24 07/25/2024 urina lysis panel , auto Unknown Analyte Clean Catch Not Available [facility] [address], [place], [address], 07/25/2024 16:21:12 07/25/20 24 07/25/2024 urina lysis panel , auto Unknown Analyte Yellow Not Available [facility] [address], [place], [address], 07/25/2024 16:21:12 07/25/20 24 07/25/2024 urina lysis panel , auto Unknown Analyte Clear Not Available [facility] [address], [place], [address], 07/25/2024 16:21:12 07/25/20 24 07/25/2024 urina lysis panel , auto Unknown Analyte 1.020 Not Available [facility] [address], [place], [address], 07/25/2024 16:21:12 07/25/20 24 07/25/2024 urina lysis panel , auto Unknown Analyte 1.003- 1.035 Not Available [facility] [address], [place], [address], 07/25/2024 16:21:12 07/25/20 24 07/25/2024 urina lysis panel , auto Unknown Analyte 5.0 Not Available [facility] [address], [place], [address], 07/25/2024 16:21:12 07/25/20 24 07/25/2024 urina lysis panel , auto Unknown Analyte 5.0-8. 0 Not Available [facility] [address], [place], [address], 07/25/2024 16:21:12 07/25/20 24 07/25/2024 urina lysis panel , auto Unknown Analyte Negati ve Not Available [facility] [address], [place], [address], 07/25/2024 16:21:12 07/25/20 24 07/25/2024 urina lysis panel , auto Unknown Analyte Negati ve Not Available [facility] [address], [place], [address], 07/25/2024 16:21:12 07/25/20 24 07/25/2024 urina lysis panel , auto Unknown Analyte Negati ve Not Available [facility] [address], [place], [address], 07/25/2024 16:21:12 07/25/20 24 07/25/2024 urina lysis panel , auto Unknown Analyte Negati ve Not Available [facility] [address], [place], [address], 07/25/2024 16:21:12 07/25/20 24 07/25/2024 urina lysis panel , auto Unknown Analyte Trace Not Available [facility] [address], [place], [address], 07/25/2024 16:21:12 07/25/20 24 07/25/2024 urina lysis panel , auto Unknown Analyte Negati ve Not Available [facility] [address], [place], [address], 07/25/2024 16:21:12 07/25/20 24 07/25/2024 urina lysis panel , auto Unknown Analyte Normal Not Available [facility] [address], [place], [address], 07/25/2024 16:21:12 07/25/20 24 07/25/2024 urina lysis panel , auto Unknown Analyte Normal Not Available [facility] [address], [place], [address], 07/25/2024 16:21:12 07/25/20 24 07/25/2024 urina lysis panel , auto Unknown Analyte Negati ve Not Available Replaced by [facility] [address], [place], [address], 07/25/2024 16:21:12 07/25/20 24 07/25/2024 urina lysis panel , auto Unknown Analyte Negati ve Not Available [facility] [address], [place], [address], 07/25/2024 16:21:12 07/25/20 24 07/25/2024 urina lysis panel , auto Unknown Analyte Normal Not Available [facility] [address], [place], [address], 07/25/2024 16:21:12 07/25/20 24 07/25/2024 urina lysis panel , auto Unknown Analyte Normal 1 mg/dl Not Available [facility] [address], [place], [address], 07/25/2024 16:21:12 07/25/20 24 07/25/2024 urina lysis panel , auto Unknown Analyte Negati ve Not Available [facility] [address], [place], [address], 07/25/2024 16:21:12 07/25/20 24 07/25/2024 urina lysis panel , auto Unknown Analyte Negati ve Not Available [facility] [address], [place], [address], 07/25/2024 16:21:12 07/25/20 24 07/25/2024 urina lysis panel , auto Unknown Analyte Negati ve Not Available Replaced by [facility] [address], [place], [address], 07/25/2024 16:21:12 07/25/20 24 07/25/2024 urina lysis panel , auto Unknown Analyte Negati ve Not Available [facility] [address], [place], [address], 07/25/2024 16:21:12 09/16/19 23 09/16/2022 CT, abdom en, w/wo contr ast No observ ation record ed. [email or web address] [facility] [address], [place], [address], 10/21/2022 13:43:51 01/14/20 23 01/13/2023 XR, chest , 2 view No observ ation record ed. [email or web address] [facility] [address], [place], [address], 01/24/2023 16:58:14 01/31/20 24 01/31/2024 XR, chest , 2 view No observ ation record ed. [email or web address] [facility] [address], [place], [address], 02/02/2024 12:49:56 07/24/20 24 07/24/2024 XR, chest , 2 view No observ ation record ed. [email or web address] Not Available 2023 13:01:44 Result Notes None recorded. Procedures Surgical History Date Name Laterality Status Provider Name and Address Organization Details Recorded Time procedure on knee completed Patricia Lazcano [facility] 05/03/2022 11:07:02 Imaging Results None recorded. Procedure Notes None recorded. Medical Equipment None Reported. Allergies No known drug allergies Medications Name Sig Start Date Stop Date Status Note LastModified by Organization Details LastModified Time glimepiride 1 mg tablet Take 1 tablet every day by oral route. active Not Available Not Available No t Available tamsulosin 0.4 mg capsule Take 1 capsule every day by oral route. 2022 active Not Available Not Available Not Avai lable lisinopril 10 mg tablet Take 1 tablet every day by oral route. 06/23 completed Not Available Not Available Not Available amlodipine active Not Available Not Av ailable Not Available Tylenol active Not Available Not Avail able Not Available Glucosamine active Not Available Not A vailable Not Available Vitals Date Recorded Body height Body mass index (BMI) Body weight Provider Name and Address Organization Details Last Updated DateTime 10/05/2022 172.72 cm 37.3 kg/m2 691996.13 g Galina Raines [facility] 10/05/2022 14:37:48 Date Recorded Body height Body mass index (BMI) Body weight Provider Name and Address Organization Details Last Updated DateTime 01/17/2023 172.72 cm 35.7 kg/m2 006498.21 g Brandi Moreno [facility] 01/17/2023 14:17:53 Date Recorded Body height Body mass index (BMI) Body weight Provider Name and Address Organization Details Last Updated DateTime 02/01/2024 172.72 cm 36.6 kg/m2 960030.76 g [place] Prajapatishaw [facility] 02/01/2024 16:13:54 Date Recorded Body height Body mass index (BMI) Body weight Provider Name and Address Organization Details Last Updated DateTime 07/19/2023 172.72 cm 37.6 kg/m2 586571.32 g [place] [facility] 07/19/2023 14:35:39 Date Recorded Body height Body mass index (BMI) Body weight Provider Name and Address Organization Details Last Updated DateTime 07/25/2024 172.72 cm 36.6 kg/m2 500532.76 g Patricia Lazcano [facility] 07/25/2024 16:20:11 Social History Question Answer Notes LastModified by Organizat ion Details LastModified Time Tobacco Smoking Status Current Every Day Smoker Patricia Lazcano [facility] 05/03/2022 11:06:52 What Is Your Relationship Status? [email or web address] Information not available 05/03/2022 How Much Tobacco Do You Smoke? 0.5 PPD [email or web address] Information not available 05/03/2022 Sex: Unknown Functional Status Question Answer Note LastModified by Organization D etails LastModified Time What is your level of alcohol consumption? None [email or web address] Information not available 05/03/2022 Mental Status None recorded. Family History Relationship Description Onset Age of this Age Resolved Age Notes LastModified by Organization Details LastModified Time Father No current problems or disability [email or web address] Not available 05/03 11:06:40 Mother No current problems or disability [email or web address] Not available 05/03 11:06:40 Medical History No medical history recorded. Past Encounters Encounter ID Performer Location Encounter Start Date Encounter Closed Date Diagnosis/Indication Diagnosis SNOMED-CT Code Diagnosis ICD10 Code Diagnosis Note [id number] MD [facility] [address] [place] [address] 05/03/2022 10:29:07 05/03/2022 11:39:21 Renal mass 710656727 N28.89 follow-up 1 week with his repeat CT scan [id number] MD [facility] [address] [address] 05/24/2022 10:19:38 05/24/2022 11:06:41 Renal mass 849391522 N28.89 right-side d hand-calin fidencio laparoscop ic radical nephrectom y JAMAAL [id number] JUAN ADAMSON [facility] [address] [place] [address] 06/23/2022 15:16:42 06/23/2022 17:10:32 Renal cell carcinoma [id number] C64.9 Follow-up 3 months. He will have a chest x-ray and lab work at that time [id number] MD [facility] [address] [address] 10/05/2022 14:09:01 10/05/2022 17:30:30 Renal cell carcinoma [id number] C64.9 Follow-up 3 months. He will have a chest x-ray and lab work at that time Benign pro static hyperplasia with outflow obstruction 130213151 N40.1 [id number] JUAN ADAMSON MD [facility] [address] [address] 01/17/2023 13:51:49 01/17/2023 16:42:50 Renal cell carcinoma [id number] C64.9 Follow-up 6 months. Benign pro static hyperplasia with outflow obstruction [id number] N40.1 Continue tamsulosin [id number] JUAN ADAMSON MD [facility] [address] [address] 07/19/2023 13:29:23 07/19/2023 15:42:58 Renal cell carcinoma [id number] C64.9 Follow-up 6 months. Benign pro static hyperplasia with outflow obstruction [id number] N40.1 Continue tamsulosin [id number] JUAN ADAMSON MD [facility] [address] [address] 02/01/2024 15:50:57 02/01/2024 16:33:09 Renal cell carcinoma [id number] C64.9 Follow-up 6 months. With chest x-ray prior to visit [id number] JUAN ADAMSON MD [facility] [address] [address] 07/25/2024 15:25:04 07/25/2024 17:03:40 Renal cell carcinoma [id number] C64.9 Follow-up 6 months. With chest x-ray prior to visit Health Concerns Section Related Observation LastModified by Organization Detai ls LastModified Time None Recorded Concern Status LastModified by Organization Details LastModified Time None Recorded Advance Directives Directive None Recorded Payers Insurance Date Sequence Insurance Name Policy Number Policy Cruz Covered Member ID Cruz Member ID Guarantor Name 01/23/2025 2 [facility] Anirudh Live [id number] Luis Live 01/23/2025 1 [place] Ed Kimberly Live [id number] Luis Live Notes Date Note Type Note Provider Name and Address Organization Details Recorded Time 10/05/2022 text/html Patient is here for 3-1/2-month follow-up regarding previous right radical nephrectomy for renal cell carcinoma. He had some cancer extending into the hilar fat but all margins were clear. Had repeat scan earlier today which was acceptable and normal. He mentions some difficulty with urinary frequency and urgency. He has nocturia 3-4 times per night. We discussed a trial of tamsulosin. JUAN ADAMSON MD [address] [place] [address], [phone], [facility] 10/05/2022 18:25:56 01/17/2023 text/html Patient is here in follow-up of previous right radical nephrectomy for renal cell carcinoma. He had a repeat CT scan just prior to his last visit at the end of September. He had a chest x-ray last week which was reviewed. No obvious abnormalities noted. His chest x-ray was at [facility]. He has an upcoming physical by his PCP and we will await those labs, at his last visit in September started him on tamsulosin for obstructive urination symptoms. He has improved but still has nocturia 3-5 times per night. We discussed cystoscopy for further evaluation if this is bothersome. He is tolerant of symptoms. He will continue on tamsulosin. JUAN ADAMOSN MD [address] [place] [address], [phone], [facility] 01/17/2023 14:40:14 07/19/2023 text/html Patient is here for scheduled 6-month follow-up with previous history of right radical nephrectomy for renal cell carcinoma. He has no complaints. He had lab work earlier in the summer. His chest x-ray in January was acceptable. We discussed repeating his chest x-ray. He was also noted to have a large amount of glucose in his urine. He is on no therapy for diabetes. He is having some issues with urinary frequency and not starting on tamsulosin back in the spring. He occasionally has nocturia x 1 but often x 3-4. We discussed that his high glucose level in the urine may cause some of his frequency and in order to protect his kidney I believe he needs to have this addressed soon. He will check with Dr. Saunders for further evaluation in the near future[place], [address], [facility] 07/19/2023 21:14:39 02/01/2024 text/html Patient is here in follow-up regarding previous right radical nephrectomy for renal cell carcinoma. He had a chest x-ray at [facility] yesterday which was unremarkable. He has had recent lab work which was all acceptable. He takes tamsulosin for mild obstructive symptoms and typically has nocturia x 1. His urine specimen today is unremarkable. We discussed continued surveillance. He remains active. JUAN ADAMSON MD [facility] [place], [address], [facility] 02/01/2024 23:58:37 07/25/2024 text/html Patient is here for scheduled 6-month follow-up. He is now 2 years following right-sided radical nephrectomy for renal cell carcinoma. He feels well. He had a recent chest x-ray at [facility] which showed no acute processes. He has had recent lab work which was acceptable[place], [address], [facility] 07/26/2024 22:49:36
[2025-02-15] MEDS: LIDOCAINE 1% 10ML MDV 10 ML IJ (14:34)
[2025-02-15] MEDS: VERAPAMIL 2.5MG/ML 2ML VIAL 2.5 MG IV (14:34)
[2025-02-15] MEDS: 0.9 % SODIUM CHLORIDE 500 ML 25 ML IV (14:34)
[2025-02-15] MEDS: NITROGLYCERIN 800MCG/8ML SYR (CATH LAB) 800 MCG IA (14:34)
[2025-02-15] MEDS: HEPARIN 1,000 UNITS/500ML NS (CATH LAB) 3000 UNIT IV (14:34)
[2025-02-15 14:46] LABS: Troponin I < 0.01 ng/ml (0.00-0.034)
[2025-02-15] MEDS: HEPARIN 1,000 UNITS/ML 10ML VIAL (CATH LAB) 5000 UNIT IV (14:55)
[2025-02-15 14:57] LABS: Activated Partial Thrombo Time 22.5 seconds (22.8-30.6); INR 0.95 (0.9-1.1); Prothrombin Time 10.6 seconds (10.1-12.5)
--- NOTE | 2025-02-15 15:08 | ED_ITS ---
Discharge Plan Disposition Patient Disposition: Admitted Condition: Serious Clinical Impressions Clinical Impression: STEMI (ST elevation myocardial infarction) Discharge ED Provider: Bro Gutierrez General Chief Complaint: Chest Pain Stated Complaint: chest pain Time Seen by Provider: 02/15/25 14:08 Mode of Arrival: Wheelchair Source of Information: Patient and Medical Record Description of Symptoms (Recalled from ER Triage Doc. by RN): pt to the ED with left sided chest pain and SOB about an hour ago while mowing. pt is cool and diaphoretic on assessment. MD immediately to bedside upon arrival. History of Present Illness HPI narrative: This is a 69-year-old male patient, with past medical history of hypertension, diabetes, and tobacco abuse, who is presenting to the emergency department today for evaluation of severe chest pain. Patient states that he was mowing his lawn prior to arrival when he began experiencing severe crushing chest pain that is radiating to his back. He has never experienced pain like this before. He does not have a known history of coronary artery disease and he has never had a heart cath and has never underwent percutaneous coronary intervention. No history of lung disease that he is aware of. Related Data Home Medications ?Medication ?Instructions ?Recorded ?Confirmed amlodipine 10 mg tablet 10 mg PO DAILY 02/15/2502/05 glimepiride 4 mg tablet 4 mg PO DAILY 02/15/2502/15 pantoprazole 40 mg tablet,delayed 40 mg PO DAILY 02/1502/15/25 release rosuvastatin 5 mg tablet 5 mg PO HS 02/15/25 02/15/25 Allergies Allergy/AdvReac Type Severity Reaction Status Date / Time No Known Allergies Allergy Unverified 08/09/24 13:03 [facility] Disclaimer: The information contained in this section may have been updated after the patient was seen, as this information can be updated by other users. Medical History History of renal cell carcinoma Abnormal electrocardiogram [ECG] [EKG] Diabetes mellitus Hypertension SOB (shortness of breath) on exertion Chest pain History of cancer of kidney in adulthood Surgical History H/O right nephrectomy History of knee surgery History of kidney removal Social History Smoking Status: Current every day smoker alcohol intake: never current occupational status: employed Travel in the last 8 weeks?: None Have you lived/traveled outside US in past 30 days?: No Contact w/someone who lives/traveled outside US past 30 days?: No Exposure to someone with infectious disease in past 14 days?: No Do you have a fever (greater than 100.4 F or 38 C)?: No Have you tested positive for COVID-19?: No Exposed to someone with COVID-19 in past 14 days?: No Do you have a sore throat?: No Do you have a cough?: No Do you have any weakness?: No Do you have any diarrhea?: No Are you experiencing any unusual bleeding?: No Do you have any muscle aches/pain?: No Do you have any abdominal pain?: No Are you experiencing loss of taste or smell?: No Other Medical History Have you received the Pneumonia Vaccine: No ROS Obtained: Yes Systems reviewed as appropriate & no additional complaints except as documented Physical Exam General General appearance: other (In acute distress, appears critically ill) Comment: Diaphoretic Head Head exam: atraumatic and normocephalic Eye Eye exam: Present normal appearance, PERRL and EOMI ENT ENT exam: Present normal exam and normal oropharynx Neck Neck exam: Present full ROM and trachea midline Chest Chest inspection: Present normal inspection and symmetric chest wall rise Respiratory Respiratory exam: Present normal lung sounds bilaterally and other (Tachypneic) Cardiovascular Cardiovascular exam: Present normal rhythm and bradycardia Abdominal Exam Abdominal exam: Present soft; Absent distention or tenderness exam: Present deferred Neurological Exam Neurological exam: Present alert HEART Score HEART Score HEART Score assessment performed?: Yes History (anamnesis): Highly suspicious ECG: Significant ST-deviation Age: >65 years Risk factors: 3 or more risk factors Troponin: </= normal limit HEART Score: 8 Critical Care Critical Care Time Critical Care Time: Yes Attestation: On 02/15/25, the high probability of a clinically significant, sudden or life threatening deterioration of the following system(s) required my full and direct attention, intervention and personal management. The time I documented below is in addition to time spent performing reported procedures but includes the following listed in this critical care notation. Total Time Total Critical Care Time: 20 Medical Decision Making Deo Inquiry Pt receiving controlled substance: No Deo was queried for this patient: No Vital Signs Vital Signs: 02/15/25 14:11 02/15/25 14:25 Temperature 98.2 F Temperature Source Oral Oral Pulse Rate 60 Pulse Rate [Right] 60 Respiratory Rate 13 20 Blood Pressure 166/76 H Blood Pressure [Right Arm] 198/82 H Blood Pressure Mean [Right Arm] 120 Blood Pressure Source [Right Arm] Manual Cuff/ Doppler Blood Pressure Position [Right Arm] Supine 02 Sat by Pulse Oximetry 97 Oxygen Delivery Method Room Air Nasal Cannula Oxygen Flow Rate (LPM) 2 Lab Data Labs: Lab Results 02/15/25 14:08: WBC 12.7 H, RBC 6.16, Hgb 17.7, Hct 52.9 H, MCV 85.9, MCH 28.7, MCHC 33.5, RDW 13.0, Plt Count 220, MPV 9.8, Neut % (Auto) 67.0, Lymph % (Auto) 21.5, [place] % (Auto) 7.9, Eos % (Auto) 1.9, Baso % (Auto) 1.1, Neut # (Auto) 8.5 H, Lymph # (Auto) 2.7, [place] # (Auto) 1.0, Eos # (Auto) 0.2, Baso # (Auto) 0.1, PT 10.6, INR 0.95, APTT 22.5 L, Sodium 142, Potassium 4.3, Chloride 101, Carbon Dioxide 26, Anion Gap 19.3 H, BUN 26 H, Creatinine 2.10 H, Estimated Creat Clear 51, Estimated GFR 31 L, Est GFR ( Amer) 38 L, Glucose 170 H, Calcium 11.0 H, Total Bilirubin 1.5 H, AST 34, ALT 32, Alkaline Phosphatase 122, Troponin I < 0.01, Total Protein 8.4 H, Albumin 4.8, Globulin 3.6 H, Albumin/Globulin Ratio 1.3 02/15/25 14:08 02/15/25 14:08 Response Orders (Tests/Meds): ED MEDICATIONS Generic Name Dose Route Start Last Admin Trade Name Freq PRN Reason Stop Dose Admin Acetaminophen 650 mg 02/15/25 15:03 Acetaminophen 325mg Tab PO 03/17/25 15:02 Q4HP PRN Fever or Mild Pain (1-3) Hydrocodone Bitart/Acetaminophen 1 tab 02/15/25 15:03 Hydrocodone/Apap 5/325 Mg Tablet PO 03/17/25 15:02 Q4HP PRN Moderate Pain (4-6) Hydrocodone Bitart/Acetaminophen 2 tab 02/15/25 15:03 Hydrocodone/Apap 5/325 Mg Tablet PO 03/17/25 15:02 Q4HP PRN Severe Pain (7-10) Aspirin 81 mg 02/16/25 09:00 Aspirin Ec 81mg Tablet PO 03/18/25 08:59 DAILY KP Diazepam 5 mg 02/15/25 14:13 Diazepam 5mg Tablet PO 02/16/25 02:13 ONCE PRN Anxiety Fentanyl Citrate 50 mcg 02/15/25 14:13 Fentanyl 100mcg/2ml Vial IV 02/16/25 02:13 Q3MINP PRN Sedation Fentanyl Citrate 25 mcg 02/15/25 14:13 Fentanyl 100mcg/2ml Vial IV 02/16/25 02:13 Q3MINP PRN Sedation Flumazenil 0.2 mg 02/15/25 14:13 Flumazenil 0.1mg/Ml 5ml Vial IV 02/16/25 02:13 NEEDED PRN Sedation Heparin Sodium (Porcine) 5,000 unit 02/15/25 14:13 02/15/25 14:55 Heparin 1,000 Units/Ml 10ml Vial (Occupational Health Technician) IV 02/15/25 18:13 1,000 unit NEEDED PRN Administration Emergency Box Band Saw Operator Hydralazine HCl 20 mg 02/15/25 14:13 Hydralazine 20mg/Ml Vial IV 02/15/25 18:13 ONCE PRN sbp>160 Adenosine 180 mg/ Sodium 90 mls @ 587.855 mls/hr 02/15/25 14:13 Chloride IV 02/15/25 18:13 ONCE PRN fractional flow reserve 180 MCG/KG/MIN Adenosine 90 mg/ Sodium 90 mls @ 1,175.71 mls/hr 02/15/25 14:13 Chloride IV 02/15/25 18:13 ONCE PRN fractional flow reserve 180 MCG/KG/MIN Sodium Chloride 1,000 mls @ 25 mls/hr 02/15/25 14:15 02/15/25 14:34 Sod Chloride 0.9% 500ml Bag IV 02/16/25 14:13 25 mls/hr .Q25H KP Administration Labetalol HCl 20 mg 02/15/25 14:13 Labetalol 20mg/4ml Syringe IV 02/15/25 18:13 ONCE PRN sbp>160 Lorazepam 1 mg 02/15/25 14:13 Lorazepam 2mg/Ml Vial IV 02/16/25 02:13 ONCE PRN Anxiety Midazolam HCl 1 mg 02/15/25 14:13 Midazolam 2mg/2ml Vial IV 02/16/25 02:13 Q3MINP PRN Sedation Midazolam HCl 1 mg 02/15/25 14:13 Midazolam Hcl 1mg/Ml 5ml Vial IV 02/16/25 02:13 Q3MINP PRN Sedation Miscellaneous 1 each 02/15/25 15:03 Consider Pt For Dual Antiplatelet Therapy At Discharge-Stent NOTAPPLIC 03/17/25 15:02 NEEDED PRN Reminder for s/p stent Naloxone HCl 0.4 mg 02/15/25 14:13 Naloxone 0.4mg/Ml Vial IV 02/16/25 02:13 Q5MINP PRN Decreased Respirations Nitroglycerin 800 mcg 02/15/25 14:13 02/15/25 14:34 Nitroglycerin 800mcg/8ml Syr (Occupational Health Technician) IA 02/15/25 18:13 800 mcg NEEDED PRN Administration Emergency Box Band Saw Operator Nitroglycerin 0.4 mg 02/15/25 15:03 Nitroglycerin 0.4mg Sl Tablet SL 03/17/25 15:02 Q5MINP PRN Chest Pain Promethazine HCl 25 mg 02/15/25 14:13 Promethazine Hcl 25mg/Ml 1ml Vial IV 02/16/25 02:13 NEEDED PRN Nausea And Vomiting Protamine Sulfate 50 mg 02/15/25 14:13 Protamine Sulfate 50mg/5ml Vial (Occupational Health Technician) IV 02/15/25 18:13 ONCE PRN act>200 Sodium Chloride 10 ml 02/15/25 14:13 Sodium Chloride 0.9% 10ml Vial IV 03/17/25 14:12 NEEDED PRN to Dilute Lorazepam inj Ticagrelor 90 mg 02/16/25 09:00 Ticagrelor 90mg Tablet PO 03/18/25 08:59 BID KP Discontinued Medications Generic Name Dose Route Start Last Admin Trade Name Freq PRN Reason Stop Dose Admin Aspirin 325 mg 02/15/25 14:07 Aspirin 325mg Tablet PO 02/15/25 14:08 ONCE ONE Diphenhydramine HCl 50 mg 02/15/25 14:13 02/15/25 14:35 Diphenhydramine 50mg/Ml Vial IV 02/15/25 14:14 50 mg ONCE ONE Administration Heparin Sodium (Porcine) 10,000 unit 02/15/25 14:13 Heparin 1,000 Units/Ml 10ml Vial (Occupational Health Technician) IV 02/15/25 14:14 ONCE ONE Heparin Sodium/Sodium Chloride 3,000 unit 02/15/25 14:13 02/15/25 14:34 Heparin 1,000 Units/500ml Ns (Occupational Health Technician) IV 02/15/25 14:14 3,000 unit ONCE ONE Administration Lidocaine HCl 10 ml 02/15/25 14:13 02/15/25 14:34 Lidocaine 1% 10ml Mdv IJ 02/15/25 14:14 10 ml ONCE ONE Administration Lidocaine HCl 10 ml 02/15/25 14:13 02/15/25 14:37 Lidocaine 1% 5ml Pf Vial IJ 02/15/25 14:14 Not Given ONCE ONE Morphine Sulfate 4 mg 02/15/25 14:13 02/15/25 14:14 Morphine 4mg/Ml Syringe IV 02/15/25 14:14 4 mg ONCE ONE Administration Ondansetron HCl 4 mg 02/15/25 14:13 02/15/25 14:14 Ondansetron 4mg/2ml Vial IV 02/16/25 02:13 4 mg NEEDED PRN Administration Nausea Sodium Chloride 25 ml 02/15/25 14:13 Sodium Chloride 0.9% 25ml Bag IV 02/15/25 14:14 ONCE ONE Ticagrelor 180 mg 02/15/25 14:13 Ticagrelor 90mg Tablet PO 02/15/25 14:14 ONCE ONE Verapamil HCl 2.5 mg 02/15/25 14:13 02/15/25 14:34 Verapamil 2.5mg/Ml 2ml Vial IV 02/15/25 14:14 2.5 mg ONCE ONE Administration ORDERS Category Date Time Status Consult to Cardiac Rehabilitation [CONS] Routine Cons 02/15/25 15:07 Active Consult to Cardiology [CONS] Routine Cons 02/15/25 15:03 Active Activated Partial Thrombo Time Stat Lab 02/15/25 14:08 Completed Basic Metabolic Panel AMLAB Lab 02/16/25 06:00 Ordered CBC w/Auto Diff [Complete Blood Count Auto Diff] Stat Lab 02/15/25 14:08 Completed CMP [Comprehensive Metabolic Panel] Stat Lab 02/15/25 14:08 Completed Complete Blood Count Auto Diff AMLAB Lab 02/16/25 06:00 Ordered HIV Combo Stat Lab 02/15/25 14:08 Received Hepatitis C Ab Qual. W/ RFX Stat Lab 02/15/25 14:08 Received PT INR [Prothrombin Time INR] Stat Lab 02/15/25 14:08 Completed Troponin I Q3H Lab 02/15/25 17:30 Ordered Troponin I Q3H Lab 02/15/25 20:30 Ordered Troponin I Stat Lab 02/15/25 14:08 Completed ECG Request NEEDED Y 02/15/25 15:15 Ordered ECG Data Tracing #1: Attestation: I reviewed this ECG and interpreted as documented below: ECG Narrative: EKG personally interpreted by me demonstrates sinus bradycardia with a rate of 57 bpm, normal axis, no VA prolongation, narrow QRS, no QTc prolongation. There is ST elevation in leads II, III and aVF with reciprocal depressions in leads I and aVL as well as ST depressions in lead V2. MDM Narrative Medical Decision Narrative: In summary, this is a 69-year-old male patient who is presenting to the emergency department today for severe sudden onset central chest pain radiating to his back that onset while mowing the grass. Comorbidities include hypertension, diabetes, and tobacco abuse which is currently not goal therapy. On initial evaluation of the patient he was in acute painful distress and appeared critically ill. He is bradycardic but normotensive. His breath sounds were normal bilaterally. He is diaphoretic. Immediately after the patient was roomed we obtained an EKG which showed findings consistent with an inferior STEMI with reciprocal changes in the high lateral leads. Differential diagnosis included ST ovation myocardial infarction, coronary thrombosis, coronary dissection, among others. The Occupational Health Technician was activated. I then had an interactive discussion with the on- call electric meter repairer helper who requested that we administer 10,000 units of heparin and 180 mg of Brilinta to the patient. In addition to this we administered 325 mg of aspirin. Within 20 minutes of arrival the patient was transferred up to the cardiac catheterization lab. Following this I had an interactive discussion with the internal medicine service who agreed to admit the patient to their service and except primary responsibility of the patient moving forward.
[2025-02-15] MEDS: FENTANYL 100MCG/2ML VIAL 50 MCG IV (15:21)
[2025-02-15] MEDS: HEPARIN 1,000 UNITS/ML 10ML VIAL (CATH LAB) 10000 UNIT IV (15:21)
[2025-02-15] MEDS: MIDAZOLAM 2MG/2ML VIAL 1 MG IV (15:21)
[2025-02-15 15:31] LABS: Hepatitis C Ab Qual. W/ RFX NEGATIVE (Negative)
[2025-02-15 15:33] LABS: CATHL Activated Clotting Time 218 SEC (74-125)
[2025-02-15 15:34] LABS: CATHL Activated Clotting Time 262 SEC (74-125)
[2025-02-15] MEDS: IOPAMIDOL-370 (76%);100ML BOTTLE 150 ML IV (15:40)
[2025-02-15] MEDS: RINGERS SOLUTION,LACTATED 500 ML IV (18:35)
--- NOTE | 2025-02-15 19:18 | P.HP_ITS ---
History of Present Illness *Admission Date: 02/15/25 *Reason for visit:: Chest pain *History of present illness: Ed Walker is a 69-year-old male with medical history significant for type 2 diabetes, 50-year pack smoker, hypertension, GERD who presents with acute onset chest pain while mowing the lawn this afternoon. He states he felt questionable episode of chest pain with radiation to the back. Denies previous episodes like this. This prompted patient to come to the ED. On arrival, patient had ST elevations in the inferior leads and patient was taken to the Work Measurement Engineer during which she received 2 stents to the RCA. Patient tolerated procedure well. On my evaluation, patient was lying in bed comfortably without any distress. Case discussed with ED provider and decision was made to admit patient for STEMI. [facility] Disclaimer: The information contained in this section may have been updated after the patient was seen, as this information can be updated by other users. Medical History Achilles bursitis of left lower extremity History of renal cell carcinoma Abnormal electrocardiogram [ECG] [EKG] Diabetes mellitus Hypertension SOB (shortness of breath) on exertion Chest pain History of cancer of kidney in adulthood Surgical History H/O right nephrectomy History of knee surgery History of kidney removal Family History (Updated 02/15/25 @ 17:17 by Madison Nascimento RN) Other No significant family history Social History (Updated 02/15/25 @ 17:16 by Madison Nascimento RN) Smoking Status: Current every day smoker alcohol intake: never current occupational status: employed Travel in the last 8 weeks?: None Have you lived/traveled outside US in past 30 days?: No Contact w/someone who lives/traveled outside US past 30 days?: No Exposure to someone with infectious disease in past 14 days?: No Do you have a fever (greater than 100.4 F or 38 C)?: No Have you tested positive for COVID-19?: No Exposed to someone with COVID-19 in past 14 days?: No Do you have a sore throat?: No Do you have a cough?: No Do you have any weakness?: No Do you have any diarrhea?: No Are you experiencing any unusual bleeding?: No Do you have any muscle aches/pain?: No Do you have any abdominal pain?: No Are you experiencing loss of taste or smell?: No Other Medical History Have you received the Flu Vaccine for this season: No Have you received the Pneumonia Vaccine: Yes Meds Home Medications and Allergies Home Medications ?Medication ?Instructions ?Recorded ?Confirmed ?Type amlodipine 10 mg tablet 10 mg PO DAILY 02/15/2502/05 History aspirin 81 mg tablet 81 mg PO DAILY 02/15/2502/05 History glimepiride 4 mg tablet 4 mg PO DAILY 02/15/2502/15 History pantoprazole 40 mg tablet,delayed 40 mg PO DAILY 02/1502/15/25 History release New Prescriptions to Start Prescriptions: Allergies Allergy/AdvReac Type Severity Reaction Status Date / Time No Known Allergies Allergy Unverified 08/09/24 13:03 Exam Data for Last 24 hours Vital signs and Labs for Last 24 Hours: Temp Pulse Resp BP Pulse Ox O2 Del Method O2 Flow Rate 97.5 F L 58 L 17 170/93 H 95 Room Air 2 02/15/25 16:00 02/15/25 18:45 02/15/25 18:45 02/15/25 18:45 02/15/25 18:45 02/15/25 18:45 02/15/25 14:25 Laboratory Results - last 24 hr 02/15/25 14:08: WBC 12.7 H, RBC 6.16, Hgb 17.7, Hct 52.9 H, MCV 85.9, MCH 28.7, MCHC 33.5, RDW 13.0, Plt Count 220, MPV 9.8, Neut % (Auto) 67.0, Lymph % (Auto) 21.5, [place] % (Auto) 7.9, Eos % (Auto) 1.9, Baso % (Auto) 1.1, Neut # (Auto) 8.5 H, Lymph # (Auto) 2.7, [place] # (Auto) 1.0, Eos # (Auto) 0.2, Baso # (Auto) 0.1, PT 10.6, INR 0.95, APTT 22.5 L, Sodium 142, Potassium 4.3, Chloride 101, Carbon Dioxide 26, Anion Gap 19.3 H, BUN 26 H, Creatinine 2.10 H, Estimated Creat Clear 51, Estimated GFR 31 L, Est GFR ( Amer) 38 L, Glucose 170 H, Calcium 11.0 H, Total Bilirubin 1.5 H, AST 34, ALT 32, Alkaline Phosphatase 122, Troponin I < 0.01, Total Protein 8.4 H, Albumin 4.8, Globulin 3.6 H, Albumi n/Globulin Ratio 1.3, HCV Ab CHARLA w/Rflx PCR Qn Negative, HIV Ag/Ab Combo Qual Negative 02/15/25 14:20: Activated Clotting Time 262 H* 02/15/25 14:52: Activated Clotting Time 218 H* I & O for Last 24 hours: Intake & Output 02/12/25 02/13/25 02/14/25 02/15/25 23:59 23:59 23:59 23:59 Intake Total 335 / 335 Output Total 125 / 125 Balance 210 / 210 Weight 113.058 kg Constitutional Constitutional: no acute distress and obese *Routine HEENT Exam Head: Present normocephalic Eye: Present EOMI and PERRL ENT: Present mucous membranes moist *Routine Neck Exam Neck: Present supple; Absent lymphadenopathy *Routine Respiratory Exam Respiratory: Present CTA bilaterally *Routine Cardiovascular Exam Cardiovascular: Present RRR *Routine Abdominal Exam Abdominal: Present soft and normoactive bowel sounds; Absent tenderness *Routine Rectal Exam Rectal:: deferred *Routine Genitalia Exam Genitalia:: deferred *Routine Extremities Exam Extremities: Absent cyanosis, clubbing or edema *Routine Skin Exam Skin: Present warm; Absent rash *Routine Neurological Exam Neurological: Present alert and oriented X3 Assessment and Plan *Assessment and plan (1) STEMI (ST elevation myocardial infarction): Status: Acute Category: Medical Code(s): I21.3 - ST elevation (STEMI) myocardial infarction of unspecified site Plan Ed Walker is a 69-year-old male with medical history significant for type 2 diabetes, 50-year pack smoker, hypertension, GERD who presents with acute onset chest pain while mowing the lawn this afternoon. He states he felt questionable episode of chest pain with radiation to the back. Denies previous episodes like this. This prompted patient to come to the ED. On arrival, patient had ST elevations in the inferior leads and patient was taken to the Work Measurement Engineer during which she received 2 stents to the RCA. Patient tolerated procedure well. On my evaluation, patient was lying in bed comfortably without any distress. Case discussed with ED provider and decision was made to admit patient for STEMI. #STEMI #CAD #Hypertension ? Presented with crushing left-sided chest pain, ST elevations inferior leads. Received 2 stents to the RCA. Tolerated procedure well, currently comfortable. ? Risk factors include current smoker, diabetic, hypertension. ? Follow-up A1c, TSH, lipid panel. ? Aspirin 81 mg, Brilinta 90 mg twice daily, atorvastatin 40 mg. Started ir besartan 75 mg, continue home amlodipine 10 mg. ? Follow-up ECHO. ? Continuous cardiac telemetry. Monitor for 48 hours. #Type 2 diabetes ? Follow-up A1c. ? LDSSI, ACHS glucose checks. #Current smoker ? Nicotine patch daily. Patient committed to stop smoking after counseling. #GERD ? Continue home PPI. #Obesity ? Complicates all aspects of care. Full code DVT prophylaxis: Lovenox 40 mg
[2025-02-15] MEDS: IRBESARTAN 75MG TABLET 75 MG PO (20:00)
[2025-02-15 20:21] LABS: POC Glucose,Bedside 134 (70-110)
[2025-02-15 21:43] LABS: Troponin I 31.70 ng/ml (0.00-0.034)
--- NOTE | 2025-02-15 21:45 | PC.NURSE ---
Elevated troponin 31.7, Tolu POLLOCK notified. New order for 12 lead EKG. Will continue to monitor.
--- NOTE | 2025-02-15 21:52 | ECG_ITS ---
APPROVED REPORT Exam: Resting ECG HR:60 bpm ECG Measurements Heart Rate 60 AXES MO 162 P 49 QRSd 84 QRS -39 QT 400 T 13 QTc 401 Conclusion SINUS RHYTHM LOW QRS VOLTAGE IN PRECORDIAL LEADS [QRS DEFLECTION < 1.0 mV IN CHEST LEADS] POSSIBLE ANTERIOR MYOCARDIAL INFARCTION , OF INDETERMINATE AGE [30 ms Q WAVE IN V3/V4, OR R < 0.2 mV IN V4] INFERIOR MYOCARDIAL INFARCTION , OF INDETERMINATE AGE [40+ ms Q WAVE AND/OR ST/T ABNORMALITY IN II/aVF] ABNORMAL ECG UNCONFIRMED REPORT Electronically signed by : Scotty Fields MD 02/17/2025 08:07:14
--- NOTE | 2025-02-15 21:56 | PC.NURSE ---
EKG performed and COMMUNITY AIDE reviewed. Will continue to monitor.
[2025-02-15] MEDS: ATORVASTATIN 40MG TABLET 40 MG PO (22:09)
[2025-02-15] MEDS: NICOTINE 21MG/24HR PATCH 21 MG TD (22:13)
--- NOTE | 2025-02-15 22:25 | EXP.EVENT.NO ---
Patient doing well and is stable. Nursing notified me that troponin was elevated. Patient did have a cardiac cath today. Patient is having no symptoms at this time twelve-lead EKG was repeated as a precaution there is no ST changes
[2025-02-16] VITALS (21 sets, daily range): BP systolic 119–168; BP diastolic 77–100; PULSE 58–80; RESP 12–24; TEMP 36.4–36.8; O2SAT 91–96; BMI 37.1
[2025-02-16 06:09] LABS: POC Glucose,Bedside 124 (70-110)
[2025-02-16 07:20] LABS: Hematocrit 49.5 % (42.0-52.0); Hemoglobin 17.0 g/dL (14.1-18.0); Immature Granulocytes % 0.5 %; Mean Corpuscular HGB Conc 34.3 g/dL (31.8-35.4); Mean Corpuscular Hemoglobin 30.0 pg (27.0-31.2); Mean Corpuscular Volume 87.5 fl (80-94); Nucleated Red Blood Cells % 0 %; Platelet Count 174 K/mm3 (142-424); Red Blood Count 5.66 M/mm3 (4.60-6.20); Red Cell Distribution Width-SD 41.9 fL; White Blood Count 11.3 K/mm3 (4.8-10.8)
[2025-02-16 07:38] LABS: Anion Gap 17.3 mEq/L (5-15); Blood Urea Nitrogen 23 mg/dl (9-20); Calcium 10.2 mg/dl (8.4-10.2); Carbon Dioxide 27 mmol/L (22.0-30.0); Chloride 99 mmol/L (98-107); Creatinine Clearance Estimated 58 mL/min (50-200); Creatinine,Serum 1.90 mg/dl (0.66-1.25); Estimated Glomerular Filt Rate 35 ml/min (>60); GFR (African American) 43 ML/MIN (>60); Glucose 133 mg/dl (74-100); Potassium 4.3 mmoL/L (3.5-5.1); Sodium 139 mmol/L (136-145)
[2025-02-16 07:57] LABS: Hemoglobin A1C 7.4 % (4.0-6.0)
[2025-02-16 08:08] LABS: Thyroid Stimulating Hormone 6.23 uIU/mL (0.465-4.68)
[2025-02-16 08:26] LABS: Alanine Aminotransferase 36 U/L (12-78); Albumin Level 4.2 g/dl (3.5-5.0); Albumin/Globulin Ratio 1.6 (1.1-1.8); Alkaline Phosphatase 106 U/L (38-126); Anion Gap 17.5 mEq/L (5-15); Aspartate Amino Transferase 155 U/L (17-59); Bilirubin,Total 1.4 mg/dl (0.2-1.3); Blood Urea Nitrogen 22 mg/dl (9-20); Calcium 10.4 mg/dl (8.4-10.2); Carbon Dioxide 27 mmol/L (22.0-30.0); Chloride 98 mmol/L (98-107); Cholesterol 159 mg/dl (140-200); Creatinine Clearance Estimated 58 mL/min (50-200); Creatinine,Serum 1.90 mg/dl (0.66-1.25); Estimated Glomerular Filt Rate 35 ml/min (>60); GFR (African American) 43 ML/MIN (>60); Globulin 2.6 g/dL (1.3-3.2); Glucose 128 mg/dl (74-100); HDL Cholesterol 33 mg/dl (40-60); Magnesium 1.7 mg/dl (1.6-2.3); Potassium 4.5 mmoL/L (3.5-5.1); Sodium 138 mmol/L (136-145); Total Protein,Serum 6.8 g/dl (6.3-8.2); Triglycerides 154 mg/dl (30-150)
[2025-02-16] MEDS: AMLODIPINE 10MG TABLET 10 MG PO (08:53)
[2025-02-16] MEDS: ASPIRIN EC 81MG TABLET 81 MG PO (08:54)
[2025-02-16] MEDS: PANTOPRAZOLE 40MG TABLET 40 MG PO (08:54)
[2025-02-16] MEDS: METOPROLOL SUCCINATE XL 25MG TABLET 25 MG PO (08:55)
[2025-02-16] MEDS: IRBESARTAN 75MG TABLET 75 MG PO (08:55)
[2025-02-16] MEDS: NICOTINE 21MG/24HR PATCH 21 MG TD (08:58)
[2025-02-16 08:59] LABS: Free T4 (Free Thyroxine) 1.53 ng/dl (0.78-2.19)
--- NOTE | 2025-02-16 10:25 | PC.NURSE ---
Report given to AYANA Taylor at this time.
--- NOTE | 2025-02-16 10:34 | PC.NURSE ---
Patient transported to Medical Surgical room 218 at this time. Patient taken by wheelchair by AIRPORT OPERATIONS COORDINATOR.
[2025-02-16 12:29] LABS: POC Glucose,Bedside 146 (70-110)
[2025-02-16] MEDS: 0.9 % SODIUM CHLORIDE 1000ML 500 ML IV (12:53)
--- NOTE | 2025-02-16 16:21 | EXP.PN ---
Subjective *Date: 02/16/25 *Time: 16:21 Interval history: Patient is doing well today, no acute complaints. Exam Data for Last 24 hours Vital signs and Labs for Last 24 Hours: Temp Pulse Resp BP Pulse Ox O2 Del Method O2 Flow Rate 98.1 F 64 22 130/77 96 Room Air 2 02/16/25 12:00 02/16/25 12:00 02/16/25 12:00 02/16/25 12:00 02/16/25 12:00 02/16/25 15:00 02/15/25 14:25 Laboratory Results - last 24 hr 02/15/25 14:08: HIV Ag/Ab Combo Qual Negative 02/15/25 20:15: POC Glucose 134 H 02/15/25 20:48: Troponin I 31.70 H 02/16/25 06:01: POC Glucose 124 H 02/16/25 06:35: Free T4 1.53 02/16/25 06:55: WBC 11.3 H, RBC 5.66, Hgb 17.0, Hct 49.5, MCV 87.5, MCH 30.0, MCHC 34.3, RDW 13.2, Plt Count 174, MPV 9.8, Neut % (Auto) 76.3, Lymph % (Auto) 14.7, [place] % (Auto) 6.5, Eos % (Auto) 1.5, Baso % (Auto) 0.5, Neut # (Auto) 8.6 H, Lymph # (Auto) 1.7, [place] # (Auto) 0.7, Eos # (Auto) 0.2, Baso # (Auto) 0.1, Sodium 139 02/16/25 06:55: Sodium 138, Potassium 4.3 02/16/25 06:55: Potassium 4.5, Chloride 99 02/16/25 06:55: Chloride 98, Carbon Dioxide 27 02/16/25 06:55: Carbon Dioxide 27, Anion Gap 17.3 H 02/16/25 06:55: Anion Gap 17.5 H, BUN 23 H 02/16/25 06:55: BUN 22 H, Creatinine 1.90 H 02/16/25 06:55: Creatinine 1.90 H, Estimated Creat Clear 58 02/16/25 06:55: Estimated Creat Clear 58, Estimated GFR 35 L 02/16/25 06:55: Estimated GFR 35 L, Est GFR ( Amer) 43 L 02/16/25 06:55: Est GFR ( Amer) 43 L, Glucose 133 H D 02/16/25 06:55: Glucose 128 H, Hemoglobin A1c 7.4 H, Calcium 10.2 02/16/25 06:55: Calcium 10.4 H, Magnesium 1.7, Total Bilirubin 1.4 H, AST 155 H D, ALT 36, Alkaline Phosphatase 106, Total Protein 6.8, Albumin 4.2 D, Globulin 2.6, Albumin/Globulin Ratio 1.6, Triglycerides 154 H, Cholesterol 159, LDL Cholesterol Direct 99.35 L, VLDL Cholesterol 31, HDL Cholesterol 33 L, Cholesterol/HDL Ratio 4.8 H, TSH 6.23 H 02/16/25 12:21: POC Glucose 146 H I & O for Last 24 hours: Intake & Output 02/13/25 02/14/25 02/15/25 02/16/25 23:59 23:59 23:59 23:59 Intake Total 335 / 335 1100 / 1100 Output Total 125 / 125 0 / 0 Balance 210 / 210 1100 / 1100 Weight 113.058 kg 111.13 kg Constitutional Constitutional: no acute distress *Routine HEENT Exam Head: Present normocephalic Eye: Present EOMI and PERRL ENT: Present mucous membranes moist *Routine Neck Exam Neck: Present supple; Absent lymphadenopathy *Routine Respiratory Exam Respiratory: Present CTA bilaterally *Routine Cardiovascular Exam Cardiovascular: Present RRR *Routine Abdominal Exam Abdominal: Present soft and normoactive bowel sounds; Absent tenderness *Routine Extremities Exam Extremities: Absent cyanosis, clubbing or edema *Routine Skin Exam Skin: Present warm; Absent rash *Routine Neurological Exam Neurological: Present alert and oriented X3 Assessment and Plan *Assessment and plan (1) STEMI (ST elevation myocardial infarction): Status: Acute Category: Medical Code(s): I21.3 - ST elevation (STEMI) myocardial infarction of unspecified site (2) CAD (coronary artery disease): Status: Acute Category: Medical Code(s): I25.10 - Atherosclerotic heart disease of [place] coronary artery without angina pectoris (3) Type 2 diabetes mellitus: Status: Acute Category: Medical Code(s): E11.9 - Type 2 diabetes mellitus without complications Plan Ed Walker is a 69-year-old male with medical history significant for type 2 diabetes, 50-year pack smoker, hypertension, GERD who presents with acute onset chest pain while mowing the lawn this afternoon. He states he felt questionable episode of chest pain with radiation to the back. Denies previous episodes like this. This prompted patient to come to the ED. On arrival, patient had ST elevations in the inferior leads and patient was taken to the Protective Signal Repairer during which she received 2 stents to the RCA. Patient tolerated procedure well. On my evaluation, patient was lying in bed comfortably without any distress. Case discussed with ED provider and decision was made to admit patient for STEMI. #STEMI #CAD #Hypertension ? Presented with crushing left-sided chest pain, ST elevations inferior leads. Received 2 stents to the RCA. Tolerated procedure well, currently very comfortable. No chest pain, shortness of breath. ? Risk factors include current smoker, diabetic, hypertension. Patient is very motivated to quit smoking. ? A1c 7.4%, LDL 99, TSH slightly elevated 6.23, free T4 normal. TSH was obtained in the setting of acute/severe illness. Patient will need repeat TSH in 4 weeks. ? Continue metoprolol succinate 25 mg, aspirin 81 mg, Brilinta 90 mg twice daily, atorvastatin 40 mg. Started irbesartan 75 mg, continue home amlodipine 10 mg. ? Follow-up ECHO on Tuesday. ? Continuous cardiac telemetry. Monitor for 48 hours. #YEMI on possible CKD ? Initial creatinine 2.1, improved to 1.9 with fluids. GFR 35. Unknown baseline. ? Given 500 mL bolus today, patient was working in the sun yesterday. Follow-up CMP in the morning. #Elevated AST ? AST bumped from 34-155 today. Other LFTs normal. Unclear etiology. ? Follow-up repeat CMP this afternoon. #Elevated TSH ? TSH slightly elevated 6.23, free T4 normal. TSH was obtained in the setting of acute/severe illness. Patient will need repeat TSH in 4 weeks to confirm hypothyroidism. #Type 2 diabetes ? A1c 7.4%. Takes glimepiride 4 mg at home. ? LDSSI, ACHS glucose checks. #Current smoker ? Nicotine patch daily. Patient committed to stop smoking after counseling. #GERD ? Continue home PPI. #Obesity ? Complicates all aspects of care. Full code DVT prophylaxis: Lovenox 40 mg
--- NOTE | 2025-02-16 16:22 | PC.NURSE ---
patient is a/ox4, remains on room air. Right radial site dressing C/D/I. no c/o chest pain or radial site pain. patient is up ad brianne in room. tolerating diet. VSS. call light within reach, family at bedside.
[2025-02-16 17:09] LABS: Albumin Level 4.4 g/dl (3.5-5.0); Chloride 98 mmol/L (98-107); Potassium 4.5 mmoL/L (3.5-5.1); Sodium 138 mmol/L (136-145)
[2025-02-16 17:12] LABS: Alanine Aminotransferase 40 U/L (12-78); Albumin/Globulin Ratio 1.5 (1.1-1.8); Alkaline Phosphatase 95 U/L (38-126); Anion Gap 15.5 mEq/L (5-15); Aspartate Amino Transferase 112 U/L (17-59); Bilirubin,Total 1.2 mg/dl (0.2-1.3); Blood Urea Nitrogen 25 mg/dl (9-20); Carbon Dioxide 29 mmol/L (22.0-30.0); Creatinine Clearance Estimated 55 mL/min (50-200); Creatinine,Serum 2.00 mg/dl (0.66-1.25); Estimated Glomerular Filt Rate 33 ml/min (>60); GFR (African American) 40 ML/MIN (>60); Globulin 3.0 g/dL (1.3-3.2); Total Protein,Serum 7.4 g/dl (6.3-8.2)
[2025-02-16 17:13] LABS: Calcium 10.0 mg/dl (8.4-10.2); Glucose 156 mg/dl (74-100)
[2025-02-16] MEDS: ATORVASTATIN 40MG TABLET 40 MG PO (20:35)
[2025-02-16 20:47] LABS: POC Glucose,Bedside 165 (70-110)
[2025-02-17] VITALS (7 sets, daily range): BP systolic 115–171; BP diastolic 51–81; PULSE 59–75; RESP 11–16; TEMP 36.6–36.8; O2SAT 96–99; BMI 17.4
[2025-02-17 07:37] LABS: Alanine Aminotransferase 29 U/L (12-78); Albumin Level 4.0 g/dl (3.5-5.0); Albumin/Globulin Ratio 1.6 (1.1-1.8); Alkaline Phosphatase 91 U/L (38-126); Anion Gap 15.3 mEq/L (5-15); Aspartate Amino Transferase 70 U/L (17-59); Bilirubin,Total 1.4 mg/dl (0.2-1.3); Blood Urea Nitrogen 24 mg/dl (9-20); Calcium 9.3 mg/dl (8.4-10.2); Carbon Dioxide 28 mmol/L (22.0-30.0); Chloride 99 mmol/L (98-107); Creatinine Clearance Estimated 27 mL/min (50-200); Creatinine,Serum 1.90 mg/dl (0.66-1.25); Estimated Glomerular Filt Rate 35 ml/min (>60); GFR (African American) 43 ML/MIN (>60); Globulin 2.5 g/dL (1.3-3.2); Glucose 98 mg/dl (74-100); Magnesium 1.8 mg/dl (1.6-2.3); Potassium 4.3 mmoL/L (3.5-5.1); Sodium 138 mmol/L (136-145); Total Protein,Serum 6.5 g/dl (6.3-8.2)
[2025-02-17] MEDS: AMLODIPINE 10MG TABLET 10 MG PO (08:14)
[2025-02-17] MEDS: METOPROLOL SUCCINATE XL 25MG TABLET 25 MG PO (08:15)
[2025-02-17] MEDS: PANTOPRAZOLE 40MG TABLET 40 MG PO (08:15)
[2025-02-17] MEDS: IRBESARTAN 75MG TABLET 75 MG PO (08:15)
[2025-02-17] MEDS: NICOTINE 21MG/24HR PATCH 21 MG TD (08:16)
[2025-02-17] MEDS: ASPIRIN EC 81MG TABLET 81 MG PO (08:16)
--- NOTE | 2025-02-17 18:24 | PC.NURSE ---
aox4, room air, ambulates independently. denied chest pain today.
[2025-02-17] MEDS: ATORVASTATIN 40MG TABLET 40 MG PO (20:30)
[2025-02-17 20:52] LABS: POC Glucose,Bedside 128 (70-110)
--- NOTE | 2025-02-17 21:11 | EXP.EVENT.NO ---
problem : New bruised area on lower abdomen, patient reports that it is nontender exam: There is approximately a 10 cm x 4 cm patch of bruising to the lower mid abdomen of the patient. History of recent cardiac cath with 2 stents from note noting that heparin was given twice an extra thousand was given question whether this was subcu. Also noting that the Lovenox is being given subcu question site because some bleeding Exam of the area nontender very superficial not deep appears to be in the skin basically diffused and not without any type of hardness or any type of sign of infection Plan: Will continue to monitor the patient teaching given about the bruising and the anticoagulation that he is on. Also discussed future lifestyle of Mediterranean type diet to stop smoking how cardiovascular disease recurs earlier and more frequently in smokers then people who are able to stop smoking. Also discussed family family history for him to let all of his sons know one of his sons did have a heart attack at age 53 was a smoker also his 49-year-old son is a smoker I have advised him to talk to his son about this and possibly seeing a supercharger mechanic related to family history. Noting that both the father and mother did from cardiovascular events. Labs have been ordered to check bleeding time PT/INR no other bruising was seen throughout the body this appears to be an isolated event that is localized preferably due to a subcu injection thank you
--- NOTE | 2025-02-17 21:40 | EXP.PN ---
Subjective *Date: 02/17/25 *Time: 21:40 Interval history: Patient doing well, no complaints. Follow-up ECHO in the morning. Anticipate discharge if normal. Exam Data for Last 24 hours Vital signs and Labs for Last 24 Hours: Temp Pulse Resp BP Pulse Ox O2 Del Method O2 Flow Rate 98 F 60 16 132/71 96 Room Air 2 02/17/25 15:45 02/17/25 16:00 02/17/25 15:45 02/17/25 15:45 02/17/25 15:45 02/17/25 20:25 02/15/25 14:25 Laboratory Results - last 24 hr 02/17/25 06:10: Sodium 138, Potassium 4.3, Chloride 99, Carbon Dioxide 28, Anion Gap 15.3 H, BUN 24 H, Creatinine 1.90 H, Estimated Creat Clear 27, Estimated GFR 35 L, Est GFR ( Amer) 43 L, Glucose 98 D, Calcium 9.3, Magnesium 1.8, Total Bilirubin 1.4 H, AST 70 H D, ALT 29 D, Alkaline Phosphatase 91, Total Protein 6.5, Albumin 4.0, Globulin 2.5, Albumin/Globulin Ratio 1.6 02/17/25 20:31: POC Glucose 128 H I & O for Last 24 hours: Intake & Output 02/14/25 02/15/25 02/16/25 02/17/25 23:59 23:59 23:59 23:59 Intake Total 335 / 335 1860 / 1860 1140 / 1140 Output Total 125 / 125 450 / 450 250 / 250 Balance 210 / 210 1410 / 1410 890 / 890 Weight 113.058 kg 111.13 kg 52.027 kg Constitutional Constitutional: no acute distress *Routine HEENT Exam Head: Present normocephalic Eye: Present EOMI and PERRL ENT: Present mucous membranes moist *Routine Neck Exam Neck: Present supple; Absent lymphadenopathy *Routine Respiratory Exam Respiratory: Present CTA bilaterally *Routine Cardiovascular Exam Cardiovascular: Present RRR *Routine Abdominal Exam Abdominal: Present soft and normoactive bowel sounds; Absent tenderness *Routine Extremities Exam Extremities: Absent cyanosis, clubbing or edema *Routine Skin Exam Skin: Present warm; Absent rash *Routine Neurological Exam Neurological: Present alert and oriented X3 Assessment and Plan *Assessment and plan (1) STEMI (ST elevation myocardial infarction): Status: Acute Category: Medical Code(s): I21.3 - ST elevation (STEMI) myocardial infarction of unspecified site (2) CAD (coronary artery disease): Status: Acute Category: Medical Code(s): I25.10 - Atherosclerotic heart disease of [place] coronary artery without angina pectoris (3) Type 2 diabetes mellitus: Status: Acute Category: Medical Code(s): E11.9 - Type 2 diabetes mellitus without complications Plan Ed Walker is a 69-year-old male with medical history significant for type 2 diabetes, 50-year pack smoker, hypertension, GERD who presents with acute onset chest pain while mowing the lawn this afternoon. He states he felt questionable episode of chest pain with radiation to the back. Denies previous episodes like this. This prompted patient to come to the ED. On arrival, patient had ST elevations in the inferior leads and patient was taken to the Vice President Industrial Relations during which she received 2 stents to the RCA. Patient tolerated procedure well. On my evaluation, patient was lying in bed comfortably without any distress. Case discussed with ED provider and decision was made to admit patient for STEMI. #STEMI #CAD #Hypertension ? Presented with crushing left-sided chest pain, ST elevations inferior leads. Received 2 stents to the RCA. Tolerated procedure well, currently very comfortable. No chest pain, shortness of breath. ? Risk factors include current smoker, diabetic, hypertension. Patient is very motivated to quit smoking. ? A1c 7.4%, LDL 99, TSH slightly elevated 6.23, free T4 normal. TSH was obtained in the setting of acute/severe illness. Patient will need repeat TSH in 4 weeks to confirm. ? Continue metoprolol succinate 25 mg, aspirin 81 mg, Brilinta 90 mg twice daily, atorvastatin 40 mg. Started irbesartan 75 mg, continue home amlodipine 10 mg. ? Follow-up ECHO on Tuesday. ? Continuous cardiac telemetry. ? Patient is doing well, no chest pains or arrhythmias on telemetry. Ambulating independently without issues. #YEMI on CKD 3 ? Initial creatinine 2.1, improved to 1.9 with fluids. GFR 35. Creatinine plateaued at 1.9. Stable. #Elevated AST ? AST bumped from 34-155 during admission, improving to 70 today. Total bilirubin 1.4. ? Patient may have underlying fatty liver disease. Continue atorvastatin 40 mg. #Elevated TSH ? TSH slightly elevated 6.23, free T4 normal. TSH was obtained in the setting of acute/severe illness. Patient will need repeat outpatient TSH in 4 weeks to confirm hypothyroidism. #Type 2 diabetes ? A1c 7.4%. Takes glimepiride 4 mg at home. ? LDSSI, ACHS glucose checks. #Current smoker ? Nicotine patch daily. Patient committed to stop smoking after counseling. #GERD ? Continue home PPI. #Obesity ? Complicates all aspects of care. Full code DVT prophylaxis: Lovenox 40 mg
[2025-02-18] VITALS: BP 106/40; PULSE 60; PULSE 65; RESP 14; TEMP 36.8; O2SAT 95
[2025-02-18 04:00] VITALS: BP 154/86; PULSE 65; PULSE 70; RESP 14; TEMP 36.8; O2SAT 99; BMI 37.8
--- NOTE | 2025-02-18 05:55 | PC.NURSE ---
no acute changes t/o shift - denies cp and soa. patient is functioning at baseline, independently.
--- NOTE | 2025-02-18 06:00 | CA_ITS ---
APPROVED REPORT EXAM: Comprehensive 2D, Doppler, and color-flow Echocardiogram Engineered Wood Designer: Coleen Price RVT Ht: 5 ft 8 in Wt: 245lbs BSA: 2.23 BP: 160/70 mmHg Indications: STEMI,CHEST PAIN 2D Dimensions IVSd 1.45 cm M: 0.6-1.2 LVEF (Visual) 56.50 % PWd 1.06 cm M: 0.6 - 1.2 LA Volume 45.00 mL LVDd 3.85 cm M: 4.2 - 5.9 LA Volume Index 20.18 mL/m2 (M/F) 16-34 LVDs 2.73 cm M: 2.5 - 4.0 M-Mode Dimensions LA Diam 4.26 cm (1.9-4.0) TAPSE 2.59 (<1.7) LV Diastology E Decel Time 150 (160-240 msec) E/A Ratio 1.2 Aortic Valve GERMÁN Index 2.19 cm2/m2 AoV Peak Clark. 129.0 (50-130 cm/s) AO Peak GR. 6.60 mmHg AO Mean GR. 3.80 (<5 mmHg) AO VTI 19.9 (18-25 cm) GERMÁN (VTI) 4.99 (2.5-4.5 cm2) Mitral Valve MV E Max Clark. 88.0 (40-130 cm/s) MV A Velocity 75.0 (40-130 cm/s) E/A Ratio 1.17 MV PHT 44.0 ms Pulmonary Valve PV Peak Velocity 91.0 (50-150 cm/s) Left Ventricle The left ventricle is normal size. The left ventricular systolic function is normal. The left ventricular ejection fraction is within the normal range. There is increased LV wall thickness. There is normal LV segmental wall motion. The left ventricular diastolic function is normal. LVEF is 55%. Right Ventricle The right ventricle is normal size. The right ventricular systolic function is normal. Atria Left atrium is mildly dilated. The right atrium size is normal. There is no Doppler evidence of interatrial shunt. Aortic Valve The aortic valve is mildly thickened. There is no aortic valvular stenosis. No aortic regurgitation is present. Mitral Valve The mitral valve is normal in structure. No evidence of mitral valve stenosis. Mild mitral regurgitation. Tricuspid Valve Tricuspid valve is grossly normal in structure and function. Trace tricuspid regurgitation. There is insufficient TR jet to estimate RVSP. Pulmonic Valve The pulmonary valve is normal in structure. Trace pulmonic regurgitation. Great Vessels The aortic root is normal in size. IVC is normal in size and collapses >50% with inspiration. Pericardium There is no pericardial effusion. Other Information Study Quality: Fair Conclusion Normal biventricular systolic function. Mild LA dilation. Mild MR. Electronically signed by : Melissa Toro MD 02/18/2025 11:48:25
[2025-02-18 08:00] VITALS: BP 130/76; PULSE 63; PULSE 70; RESP 20; TEMP 36.6; O2SAT 96
[2025-02-18 08:09] LABS: Alanine Aminotransferase 32 U/L (12-78); Albumin Level 4.5 g/dl (3.5-5.0); Albumin/Globulin Ratio 1.5 (1.1-1.8); Alkaline Phosphatase 102 U/L (38-126); Anion Gap 16.5 mEq/L (5-15); Aspartate Amino Transferase 67 U/L (17-59); Bilirubin,Total 2.0 mg/dl (0.2-1.3); Blood Urea Nitrogen 25 mg/dl (9-20); Calcium 10.7 mg/dl (8.4-10.2); Carbon Dioxide 29 mmol/L (22.0-30.0); Chloride 97 mmol/L (98-107); Creatinine Clearance Estimated 56 mL/min (50-200); Creatinine,Serum 2.00 mg/dl (0.66-1.25); Estimated Glomerular Filt Rate 33 ml/min (>60); GFR (African American) 40 ML/MIN (>60); Globulin 3.0 g/dL (1.3-3.2); Glucose 133 mg/dl (74-100); INR 0.99 (0.9-1.1); Magnesium 1.8 mg/dl (1.6-2.3); Potassium 4.5 mmoL/L (3.5-5.1); Prothrombin Time 11.0 seconds (10.1-12.5); Sodium 138 mmol/L (136-145); Total Protein,Serum 7.5 g/dl (6.3-8.2)
[2025-02-18] MEDS: METOPROLOL SUCCINATE XL 25MG TABLET 25 MG PO (08:42)
[2025-02-18] MEDS: IRBESARTAN 75MG TABLET 75 MG PO (08:42)
[2025-02-18] MEDS: PANTOPRAZOLE 40MG TABLET 40 MG PO (08:42)
[2025-02-18] MEDS: ASPIRIN EC 81MG TABLET 81 MG PO (08:42)
[2025-02-18] MEDS: AMLODIPINE 10MG TABLET 10 MG PO (08:42)
--- NOTE | 2025-02-18 10:18 | EXP.DC.SUM ---
General Admission date:: 02/15/25 HPI HPI HPI: Ed Calos is a 69-year-old male with medical history significant for type 2 diabetes, 50-year pack smoker, hypertension, GERD who presents with acute onset chest pain while mowing the lawn this afternoon. He states he felt questionable episode of chest pain with radiation to the back. Denies previous episodes like this. This prompted patient to come to the ED. On arrival, patient had ST elevations in the inferior leads and patient was taken to the Building Stonecutter during which she received 2 stents to the RCA. Patient tolerated procedure well. On my evaluation, patient was lying in bed comfortably without any distress. Case discussed with ED provider and decision was made to admit patient for STEMI. Hospital Course Hospital Course Hospital Course: Ed Calos is a 69-year-old male with medical history significant for type 2 diabetes, 50-year pack smoker, hypertension, GERD who presents with acute onset chest pain while mowing the lawn this afternoon. He states he felt questionable episode of chest pain with radiation to the back. Denies previous episodes like this. This prompted patient to come to the ED. On arrival, patient had ST elevations in the inferior leads and patient was taken to the Building Stonecutter during which she received 2 stents to the RCA. Patient tolerated procedure well. On my evaluation, patient was lying in bed comfortably without any distress. Case discussed with ED provider and decision was made to admit patient for STEMI. #STEMI #CAD #Hypertension ? Presented with crushing left-sided chest pain, ST elevations inferior leads. Received 2 stents to the RCA. Tolerated procedure well, currently very comfortable. No chest pain, shortness of breath. ? Risk factors include current smoker, diabetic, hypertension. Patient is very motivated to quit smoking. ? A1c 7.4%, LDL 99, TSH slightly elevated 6.23, free T4 normal. TSH was obtained in the setting of acute/severe illness. Patient will need repeat TSH in 4 weeks to confirm. ? ECHO shows normal biventricular systolic function. ? Patient had no complications post LHC, chest pain-free. ? Discharged with metoprolol succinate 25 mg, aspirin 81 mg, Brilinta 90 mg twice daily, atorvastatin 40 mg, irbesartan 75 mg, continue home amlodipine 10 mg. ?Will follow-up with cardiology within 1 week. #YEMI on CKD 3 ? Initial creatinine 2.1, improved to 1.9 with fluids. GFR 35. Creatinine plateaued at 1.9. Stable. #Elevated AST ? AST bumped from 34-155 during admission, improving to 67 today. Total bilirubin 2.0. ? Patient may have underlying fatty liver disease. Continue atorvastatin 40 mg. ? Recommend outpatient RUQ ultrasound. No abdominal pain. #Elevated TSH ? TSH slightly elevated 6.23, free T4 normal. TSH was obtained in the setting of acute/severe illness. Patient will need repeat outpatient TSH in 4 weeks to confirm hypothyroidism. #Type 2 diabetes ? A1c 7.4%. Takes glimepiride 4 mg at home. #Current smoker ? Discharged with nicotine patch daily. Patient committed to stop smoking after counseling. #GERD ? Continue home PPI. #Obesity ? Complicates all aspects of care. Exam Data for Last 24 hours Vital signs and Labs for Last 24 Hours: Temp Pulse Resp BP Pulse Ox O2 Del Method O2 Flow Rate 98 F 63 20 130/76 96 Room Air 2 02/18/25 08:00 02/18/25 08:00 02/18/25 08:00 02/18/25 08:00 02/18/25 08:00 02/18/25 08:00 02/15/25 14:25 Laboratory Results - last 24 hr 02/17/25 20:31: POC Glucose 128 H 02/18/25 07:18: PT 11.0, INR 0.99, Sodium 138, Potassium 4.5, Chloride 97 L, Carbon Dioxide 29, Anion Gap 16.5 H, BUN 25 H, Creatinine 2.00 H, Estimated Creat Clear 56, Estimated GFR 33 L, Est GFR ( Amer) 40 L, Glucose 133 H, Calcium 10.7 H, Magnesium 1.8, Total Bilirubin 2.0 H, AST 67 H, ALT 32, Alkaline Phosphatase 102, Total Protein 7.5, Albumin 4.5 D, Globulin 3.0, Albumin/Globulin Ratio 1.5 I & O for Last 24 hours: Intake & Output 02/15/25 02/16/25 02/17/25 02/18/25 23:59 23:59 23:59 23:59 Intake Total 335 / 335 1860 / 1860 1620 / 1620 Output Total 125 / 125 450 / 450 250 / 250 Balance 210 / 210 1410 / 1410 1370 / 1370 Weight 113.058 kg 111.13 kg 52.027 kg 113.398 kg Constitutional Constitutional: no acute distress and obese *Routine HEENT Exam Head: Present normocephalic Eye: Present EOMI and PERRL ENT: Present mucous membranes moist *Routine Neck Exam Neck: Present supple; Absent lymphadenopathy *Routine Respiratory Exam Respiratory: Present CTA bilaterally *Routine Cardiovascular Exam Cardiovascular: Present RRR *Routine Abdominal Exam Abdominal: Present soft and normoactive bowel sounds; Absent tenderness *Routine Extremities Exam Extremities: Absent cyanosis, clubbing or edema *Routine Skin Exam Skin: Present warm; Absent rash *Routine Neurological Exam Neurological: Present alert and oriented X3 Results Data Completed and Pending Labs on day of discharge: Labs from last 24 hours 02/18/25 02/17/25 07:18 20:31 PT 11.0 INR 0.99 Sodium 138 Potassium 4.5 Chloride 97 L Carbon Dioxide 29 Anion Gap 16.5 H BUN 25 H Creatinine 2.00 H Estimated Creat Clear 56 Estimated GFR 33 L Est GFR ( Amer) 40 L Glucose 133 H POC Glucose 128 H Calcium 10.7 H Magnesium 1.8 Total Bilirubin 2.0 H AST 67 H ALT 32 Alkaline Phosphatase 102 Total Protein 7.5 Albumin 4.5 D Globulin 3.0 Albumin/Globulin Ratio 1.5 DS: Diagnosis Discharge Diagnosis (1) STEMI (ST elevation myocardial infarction): Status: Acute Code(s): I21.3 - ST elevation (STEMI) myocardial infarction of unspecified site (2) CAD (coronary artery disease): Status: Acute Code(s): I25.10 - Atherosclerotic heart disease of [place] coronary artery without angina pectoris (3) Type 2 diabetes mellitus: Status: Acute Code(s): E11.9 - Type 2 diabetes mellitus without complications Meds Home Medications and Allergies Home Medications ?Medication ?Instructions ?Recorded ?Confirmed ?Type amlodipine 10 mg tablet 10 mg PO DAILY 02/15/25 02/15/25 History aspirin 81 mg tablet 81 mg PO DAILY 02/15/25 02/15/25 History glimepiride 4 mg tablet 4 mg PO DAILY 02/15/25 02/15/25 History pantoprazole 40 mg tablet,delayed 40 mg PO DAILY 02/15/25 02/15/25 History release atorvastatin 40 mg tablet 40 mg PO HS 30 days #30 tabs 02/18/25 Rx irbesartan 75 mg tablet 75 mg PO DAILY 30 days #30 tabs 02/18/25 Rx metoprolol succinate 25 mg 25 mg PO DAILY 30 days #30 tabs 02/18/25 Rx tablet,extended release 24 hr nicotine 21 mg/24 hr daily 21 mg transdermal DAILY 30 days 02/18/25 Rx transdermal patch #30 ea ticagrelor 90 mg tablet (Brilinta) 90 mg PO BID 30 days #60 tabs 02/18/25 Rx New Prescriptions to Start Prescriptions: atorvastatin Lilibeth,Chacorta irbesartan Lilibeth,Chacorta metoprolol succinate Indirala,Chacorta nicotine Indirala,Chacorta ticagrelor [Brilinta] Lilibeth,Chacorta Allergies Allergy/AdvReac Type Severity Reaction Status Date / Time No Known Allergies Allergy Unverified 08/09/24 13:03 Discharge Plan Disposition Patient Disposition: Home, Self-Care Condition: Fair Discharge Order Discharge Orders: Discharge Order (Routine); Ordered 02/18/25 Ordered By: Chacorta Mcelroy Follow up Plan Follow up with: Goran Hamilton PA [Physician Cardiac Monitor Technician, Cardiology] - 02/28/25 3:00 pm Marisela Flores APRN [Referring, Medical] - 02/27/25 10:30 am Prescriptions/Medication Reconciliation: New atorvastatin 40 mg Tablet 40 mg PO HS 30 Days Qty: 30 0RF nicotine 21 mg/24 hr Patch 24 Hour 21 mg transdermal DAILY 30 Days Qty: 30 0RF irbesartan 75 mg Tablet 75 mg PO DAILY 30 Days Qty: 30 0RF metoprolol succinate 25 mg Tablet Extended Release 24 Hr 25 mg PO DAILY 30 Days Qty: 30 0RF ticagrelor [Brilinta] 90 mg Tablet 90 mg PO BID 30 Days Qty: 60 0RF Continued amlodipine 10 mg tablet 10 mg PO DAILY pantoprazole 40 mg tablet,delayed release (DR/EC) 40 mg PO DAILY glimepiride 4 mg tablet 4 mg PO DAILY aspirin 81 mg Tablet 81 mg PO DAILY Other Ambulatory Orders: Complete Blood Count Auto Diff (Routine) Timeframe: 20250228 Facility: [facility] - Location: Laboratory Ordered By: Jeremy Quintana Comprehensive Metabolic Panel (Routine) Timeframe: 20250228 Facility: [facility] - Location: Laboratory Ordered By: Jeremy Quintana Problem Reconciliation Problems Reviewed?: Yes Patient Discharge Instructions Patient Instructions: DI for Heart Attack, DI for Cardiac Catheterization, DI for Surgical Site Infection Print Language: [place]ames[place] Providers Primary Care Provider: Provider,Referral Admit Provider: Chacorta Mcelroy Attending Provider: Chacorta Mcelroy
--- NOTE | 2025-02-18 10:20 | P.CONCA_ITS ---
History of Present Illness History of Present Illness Consult date: 02/18/25 Requesting physician: Chacorta Mcelroy Consult reason: chest pain Chief complaint: chest pain Additional Medical History:: 1. HTN A. History of right nephrectomy in 2021 secondary to renal cell cancer. 2. DM A. Hgb A1C 7.4, 02/2025 3. Tobacco use, [id number] A. Nicotine patch therapy 4. GERD A. PPI therapy 5. Hyperlipidemia A. Statin therapy with LDL 99 on 02/16/2025 History of present illness: 69-year-old white male with history of diabetes mellitus, tobacco use, hypertension and GERD presented to emergency department with acute onset of chest pain while mowing his lawn. Transported to ER by private vehicle. ER evaluation noted ST elevation in the inferior leads and patient was taken probably to the Stranding Supervisor. He received stents to the RCA with resolution of chest pain. Patient has done well over the weekend and is anxious to go home today. Preliminary echocardiogram this morning shows preserved ejection fraction [facility] Disclaimer: The information contained in this section may have been updated after the patient was seen, as this information can be updated by other users. Medical History (Updated 02/18/25 @ 10:26 by ARYAN Cisneros) Achilles bursitis of left lower extremity History of renal cell carcinoma Abnormal electrocardiogram [ECG] [EKG] Diabetes mellitus Hypertension SOB (shortness of breath) on exertion Chest pain History of cancer of kidney in adulthood Surgical History H/O right nephrectomy History of knee surgery History of kidney removal Family History (Updated 02/15/25 @ 17:17 by Madison Nascimento RN) No significant family history Social History (Updated 02/15/25 @ 17:16 by Madison Nascimento RN) Smoking Status: Current every day smoker alcohol intake: never current occupational status: employed Travel in the last 8 weeks?: None Have you lived/traveled outside [place] in past 30 days?: No Contact w/someone who lives/traveled outside US past 30 days?: No Exposure to someone with infectious disease in past 14 days?: No Do you have a fever (greater than 100.4 F or 38 C)?: No Have you tested positive for COVID-19?: No Exposed to someone with COVID-19 in past 14 days?: No Do you have a sore throat?: No Do you have a cough?: No Do you have any weakness?: No Do you have any diarrhea?: No Are you experiencing any unusual bleeding?: No Do you have any muscle aches/pain?: No Do you have any abdominal pain?: No Are you experiencing loss of taste or smell?: No Review of Systems Review of Systems Review of systems:: pertinent systems reviewed and negative unless documented below *Cardiovascular Cardiovascular: Reports chest pain Exam Data for Last 24 hours Vital signs and Labs for Last 24 Hours: Temp Pulse Resp BP Pulse Ox O2 Del Method O2 Flow Rate 98 F 63 20 130/76 96 Room Air 2 02/18/25 08:00 02/18/25 08:00 02/18/25 08:00 02/18/25 08:00 02/18/25 08:00 02/18/25 08:00 02/15/25 14:25 Laboratory Results - last 24 hr 02/17/25 20:31: POC Glucose 128 H 02/18/25 07:18: PT 11.0, INR 0.99, Sodium 138, Potassium 4.5, Chloride 97 L, Carbon Dioxide 29, Anion Gap 16.5 H, BUN 25 H, Creatinine 2.00 H, Estimated Creat Clear 56, Estimated GFR 33 L, Est GFR ( Amer) 40 L, Glucose 133 H, Calcium 10.7 H, Magnesium 1.8, Total Bilirubin 2.0 H, AST 67 H, ALT 32, Alkaline Phosphatase 102, Total Protein 7.5, Albumin 4.5 D, Globulin 3.0, Albumin/Globulin Ratio 1.5 I & O for Last 24 hours: Intake & Output 02/15/25 02/16/25 02/17/25 02/18/25 11:59 11:59 11:59 11:59 Intake Total 535 / 535 2140 / 2140 1140 / 1140 Output Total 125 / 125 700 / 700 0 / 0 Balance 410 / 410 1440 / 1440 1140 / 1140 Weight 245 lb 114 lb 11.2 oz 250 lb Constitutional Constitutional: no acute distress *Routine Respiratory Exam Respiratory: Present CTA bilaterally; Absent rhonchi or wheezes *Routine Cardiovascular Exam Cardiovascular: Present RRR; Absent murmur, gallop or rubs Meds Home Medications and Allergies Home Medications ?Medication ?Instructions ?Recorded ?Confirmed ?Type amlodipine 10 mg tablet 10 mg PO DAILY 02/15/2502/05 History aspirin 81 mg tablet 81 mg PO DAILY 02/15/2502/05 History glimepiride 4 mg tablet 4 mg PO DAILY 02/15/2502/15 History pantoprazole 40 mg tablet,delayed 40 mg PO DAILY 02/1502/15/25 History release atorvastatin 40 mg tablet 40 mg PO HS 30 days #30 tabs 02/18/25 Rx irbesartan 75 mg tablet 75 mg PO DAILY 30 days #30 t abs 02/18/25 Rx metoprolol succinate 25 mg 25 mg PO DAILY 30 days #30 tabs 02/18/25 Rx tablet,extended release 24 hr nicotine 21 mg/24 hr daily 21 mg transdermal DAILY 30 days 02/18/25 Rx transdermal patch #30 ea ticagrelor 90 mg tablet (Brilinta) 90 mg PO BID 30 day s #60 tabs 02/18/25 Rx New Prescriptions to Start Prescriptions: atorvastatin Lilibeth,Chacorta irbesartan Lilibeth,Chacorta metoprolol succinate Lilibeth,Chacorta nicotine Lilibeth,Chacorta ticagrelor [Brilinta] Chacorta Mcelroy Allergies Allergy/AdvReac Type Severity Reaction Status Date / Time No Known Allergies Allergy Unverified 08/09/24 13:03 Assessment and Plan *Assessment and plan (1) STEMI (ST elevation myocardial infarction): Status: Acute Qualifiers: Involved coronary artery: right coronary artery Qualified Code(s): I21.11 - ST elevation (STEMI) myocardial infarction involving right coronary artery Category: Medical Code(s): I21.3 - ST elevation (STEMI) myocardial infarction of unspecified site (2) CAD (coronary artery disease): Status: Acute Qualifiers: Coronary Disease-Associated Artery/Lesion type: [place] artery [place] vs. transplanted heart: [place] heart Associated angina: with unstable angina Qualified Code(s): I25.110 - Atherosclerotic heart disease of [place] coronary artery with unstable angina pectoris Category: Medical Code(s): I25.10 - Atherosclerotic heart disease of [place] coronary artery without angina pectoris (3) Type 2 diabetes mellitus: Status: Acute Qualifiers: Diabetes mellitus predatory animal exterminator insulin use: without predatory animal exterminator use Diabetes mellitus complication status: with circulatory complication Diabetes mellitus complication detail: with other circulatory complications Qualified Code(s): E11.59 - Type 2 diabetes mellitus with other circulatory complications Category: Medical Code(s): E11.9 - Type 2 diabetes mellitus without complications (4) Hypertension: Status: Acute Qualifiers: Hypertension type: primary hypertension Qualified Code(s): I10 - Essential (primary) hypertension Category: Medical Code(s): I10 - Essential (primary) hypertension (5) Hyperlipemia, mixed: Status: Acute Category: Medical Code(s): E78.2 - Mixed hyperlipidemia Plan 1. Inferior STEMI status post 2 SELVIN to RCA -DAPT therapy with aspirin and Brilinta -Preliminary echocardiogram 02/18/2025, preserved EF 2. Tobacco use, cessation recommended 3. Type 2 diabetes mellitus with recent hemoglobin A1c of 7.4 -Continue glimepiride 4. Mixed hyperlipidemia -Continue statin 5. Hypertension with history of right nephrectomy in 2021 secondary to renal cell carcinoma Clinically stable for discharge from cardiology standpoint Medication recommendations: Aspirin 81 mg daily Brilinta 90 mg twice daily Atorvastatin 40 mg daily Amlodipine 10 mg daily Irbesartan 75 mg daily Metoprolol succinate 25 mg daily Protonix 40 mg daily Nicotine patches as needed Follow-up in our office in 1 week. Will need to consider Repatha to get LDL less than 55.
--- NOTE | 2025-02-19 10:47 | SW/DCPLANNER ---
Spoke with patient on phone. Patient stated that he is doing good. Patient stated that he is aware of his upcoming appointments. Patient stated that he was able to get his new medicine picked up from [facility] pharmacy. Patient stated that his bottles of medicine did not have any refills on them and i suggested that he ask his PCP and that they might do blood work and go from there. Patient stated that he doesnt have any other concerns or questions at this time. Nacho GIVENS Welt Pocket Machine Operator
[2025-02-19 12:37] LABS: POC Glucose,Bedside 142 (70-110)
[2025-02-19 12:39] LABS: POC Glucose,Bedside 151 (70-110)
== END 2025-02-18 11:55 | disposition home or self-care (01) | DRG 322 ==
LOC: ER 14:28 → CATHLAB 14:43 → ICU 15:46 → 2ND 02-16 10:10
PROVIDERS: Internal Medicine Cardiovascular Disease; Nurse Practitioner Family; Admitting Provider Student in an Organized Health Care Education/Training Program; Emergency Provider Student in an Organized Health Care Education/Training Program; Visit Provider Student in an Organized Health Care Education/Training Program
PROC: 4A023N7 Measurement of Cardiac Sampling and Pressure, Left Heart, Percutaneous Approach (ICD-10-PCS; CPT 93452; principal; 2025-02-15 14:10)
DX: I21.3 ST elevation (STEMI) myocardial infarction of unspecified site (principal); N17.9 Acute kidney failure, unspecified; I12.9 Hypertensive chronic kidney disease with stage 1 through stage 4 chronic kidney disease, or unspecified chronic kidney disease; E11.22 Type 2 diabetes mellitus with diabetic chronic kidney disease; N18.30 Chronic kidney disease, stage 3 unspecified; K76.0 Fatty (change of) liver, not elsewhere classified; E78.2 Mixed hyperlipidemia; I25.10 Atherosclerotic heart disease of native coronary artery without angina pectoris; K21.9 Gastro-esophageal reflux disease without esophagitis; E66.9 Obesity, unspecified; F17.210 Nicotine dependence, cigarettes, uncomplicated; Z79.899 Other long term (current) drug therapy; Z79.84 Long term (current) use of oral hypoglycemic drugs; Z68.37 Body mass index [BMI] 37.0-37.9, adult; Z85.53 Personal history of malignant neoplasm of renal pelvis; Z90.5 Acquired absence of kidney
CPT/HCPCS: 36415; 80048; 80053; 80061; 82962; 83036; 83735; 84439; 84443; 84484; 85025; 85347; 85610; 85730; 86803; 87389; 93005; 93306; 99152; 99153; C1725; C1769; C1874; J1200; J1644; J1650; J2250; J2270; J2405; J3010; J7030; J7040; J7120; Q9967

== ENCOUNTER 2025-02-21 11:32 | Outpatient (CLI) | payer MEDICARE, SELFPAY ==
--- OUTSIDE RECORDS SUMMARY | 2025-02-21 11:34 | XMS_ITS ---
Author Organization Unknown Vital Signs BpStanding BpSitting BpSupine Date Temperature HeartRate Weight Hei ght Spo2 Respiration Bmi HeadCircumference FieldCount TimeRecorded NeckCircumferen ce WaistCircumference Pulse 126/68 09/20 00:00 :00 98.2 76 253,0 5,8 98 38.4 6 7 02/18/2025 11:00:00 140/62 02/21 00:00 :00 98.4 243,0 5,8 36.9 4 5 02/18/2025 13:30:00
--- OUTSIDE RECORDS SUMMARY | 2025-02-21 11:34 | XMS_ITS | Referral Summary ---
Author Organization [employer] ([place], [place], [place], [place]) Address [address] [place] [address] Care Team Providers Care Boilermaker Apprentice Name Role Phone Humberto Self MD Primary Care Provider [phone] Allergies No known active allergies Medications No [...] How often do you attend chur or episcopal services? Never 06/01/2022 Do you belong to any clubs o r organizations such as oriental orthodox groups, unions, fraternal or athletic groups, or [...] Date Lauro rded Speak language other than Italian at home Not on file 08/26/2023 Want [...] Insurance MEDICARE PART A B Care Teams Boilermaker Apprentice Relationship Specialty Start Date End Date Humberto Self MD [address] [place] [id number] PCP - General Family Medicine 06/01/22
--- OUTSIDE RECORDS SUMMARY | 2025-02-21 11:34 | XMS_ITS | Data Portability ---
Author Organization [facility] Address [address] [place] [address] Care Team Providers Care Retail Coverage Merchandiser Name Role Phone ROCCO SAUNDERS Primary Care Provider Assessment No assessment recorded. Plan of Treatment Reminders Order Date Submit Date Provider Last Modified By Organization Details Last Modified Time Details Appointments None recorded. Lab urinalysis panel, auto 2023 024 [facility], [address], [address], [place], [address], 4 22:48:39 urinalysis panel, auto 2023 024 [email or web address] [facility], [address], [address], [place], [address], 4 23:57:39 urinalysis panel, auto 2022 023 [email or web address] [facility], [address], [address], [place], [address], 3 21:13:29 urinalysis panel, auto 2022 023 [email or web address] [facility], [address], [address], [place], [address], 3 14:38:55 urinalysis panel, auto 2022 023 [email or web address] [facility], [address], [address], [place], [address], 3 15:08:07 Referral None recorded. Procedures None recorded. Surgeries None recorded. Imaging None recorded. Medication Orders tamsulosin 0.4 mg capsule 2022 023 [facility], [address], [address], [place], [address], 15:16:28 Patient TargetsNo targets recorded. Patient InstructionsNo instructions recorded. Reason for Referral None Reported. Results Created Date Observation Date Name Description Value Unit Range Abnormal Flag Note LastModifiedBy Organization Detail LastModifiedTime 10/05/1910/05/2022 urina lysis panel , auto Unknown Analyte Clean Catch Not Available [facility] [address], [place], [address], 10/05/2022 14:37:56 10/05/19 23 10/05/2022 urina lysis panel , auto Unknown Analyte Yellow Not Available [facility] [address], [place], [address], 10/05/2022 14:37:56 10/05/19 23 10/05/2022 urina lysis panel , auto Unknown Analyte Clear Not Available [facility] [address], [place], [address], 10/05/2022 14:37:56 10/05/19 23 10/05/2022 urina lysis panel , auto Unknown Analyte 1.025 Not Available [facility] [address], [place], [address], 10/05/2022 14:37:56 10/05/19 23 10/05/2022 urina lysis panel , auto Unknown Analyte 1.003- 1.035 Not Available [facility] [address], [place], [address], 10/05/2022 14:37:56 10/05/19 23 10/05/2022 urina lysis panel , auto Unknown Analyte 5.0 Not Available [facility] [address], [place], [address], 10/05/2022 14:37:56 10/05/19 23 10/05/2022 urina lysis panel , auto Unknown Analyte 5.0-8. 0 Not Available [facility] [address], [place], [address], 10/05/2022 14:37:56 10/05/19 23 10/05/2022 urina lysis panel , auto Unknown Analyte Negati ve Not Available [facility] [address], [place], [address], 10/05/2022 14:37:56 10/05/19 23 10/05/2022 urina lysis panel , auto Unknown Analyte Negati ve Not Available [facility] [address], [place], [address], 10/05/2022 14:37:56 10/05/19 23 10/05/2022 urina lysis panel , auto Unknown Analyte Negati ve Not Available [facility] [address], [place], [address], 10/05/2022 14:37:56 10/05/19 23 10/05/2022 urina lysis panel , auto Unknown Analyte Negati ve Not Available [facility] [address], [place], [address], 10/05/2022 14:37:56 10/05/19 23 10/05/2022 urina lysis panel , auto Unknown Analyte 30 mg/dl (+) Not Available [facility] [address], [place], [address], 10/05/2022 14:37:56 10/05/19 23 10/05/2022 urina lysis panel , auto Unknown Analyte Negati ve Not Available [facility] [address], [place], [address], 10/05/2022 14:37:56 10/05/19 23 10/05/2022 urina lysis panel , auto Unknown Analyte Normal Not Available [facility] [address], [place], [address], 10/05/2022 14:37:56 10/05/19 23 10/05/2022 urina lysis panel , auto Unknown Analyte Normal Not Available [facility] [address], [place], [address], 10/05/2022 14:37:56 10/05/19 23 10/05/2022 urina lysis panel , auto Unknown Analyte Negati ve Not Available [facility] [address], [place], [address], 10/05/2022 14:37:56 10/05/19 23 10/05/2022 urina lysis panel , auto Unknown Analyte Negati ve Not Available [facility] [address], [place], [address], 10/05/2022 14:37:56 10/05/19 23 10/05/2022 urina lysis panel , auto Unknown Analyte Normal Not Available [facility] [address], [place], [address], 10/05/2022 14:37:56 10/05/19 23 10/05/2022 urina lysis panel , auto Unknown Analyte Normal 1 mg/dl Not Available [facility] [address], [place], [address], 10/05/2022 14:37:56 10/05/19 23 10/05/2022 urina lysis panel , auto Unknown Analyte Negati ve Not Available [facility] [address], [place], [address], 10/05/2022 14:37:56 10/05/19 23 10/05/2022 urina lysis panel , auto Unknown Analyte Negati ve Not Available [facility] [address], [place], [address], 10/05/2022 14:37:56 10/05/19 23 10/05/2022 urina lysis panel , auto Unknown Analyte Negati ve Not Available [facility] [address], [place], [address], 10/05/2022 14:37:56 10/05/19 23 10/05/2022 urina lysis panel , auto Unknown Analyte Negati ve Not Available [facility] [address], [place], [address], 10/05/2022 14:37:56 01/18/20 23 01/17/2023 urina lysis panel , auto Unknown Analyte Clean Catch Not Available [facility] [address], [place], [address], 01/17/2023 14:18:43 01/18/20 23 01/17/2023 urina lysis panel , auto Unknown Analyte Yellow Not Available [facility] [address], [place], [address], 01/17/2023 14:18:43 01/18/20 23 01/17/2023 urina lysis panel , auto Unknown Analyte Clear Not Available [facility] [address], [place], [address], 01/17/2023 14:18:43 01/18/20 23 01/17/2023 urina lysis panel , auto Unknown Analyte 1.020 Not Available [facility] [address], [place], [address], 01/17/2023 14:18:43 01/18/20 23 01/17/2023 urina lysis panel , auto Unknown Analyte 1.003- 1.035 Not Available [facility] [address], [place], [address], 01/17/2023 14:18:43 01/18/20 23 01/17/2023 urina lysis panel , auto Unknown Analyte 5.0 Not Available [facility] [address], [place], [address], 01/17/2023 14:18:43 01/18/20 23 01/17/2023 urina lysis panel , auto Unknown Analyte 5.0-8. 0 Not Available [facility] [address], [place], [address], 01/17/2023 14:18:43 01/18/20 23 01/17/2023 urina lysis panel , auto Unknown Analyte Negati ve Not Available [facility] [address], [place], [address], 01/17/2023 14:18:43 01/18/20 23 01/17/2023 urina lysis panel , auto Unknown Analyte Negati ve Not Available [facility] [address], [place], [address], 01/17/2023 14:18:43 01/18/20 23 01/17/2023 urina lysis panel , auto Unknown Analyte Negati ve Not Available [facility] [address], [place], [address], 01/17/2023 14:18:43 01/18/20 23 01/17/2023 urina lysis panel , auto Unknown Analyte Negati ve Not Available [facility] [address], [place], [address], 01/17/2023 14:18:43 01/18/20 23 01/17/2023 urina lysis panel , auto Unknown Analyte Trace Not Available [facility] [address], [place], [address], 01/17/2023 14:18:43 01/18/20 23 01/17/2023 urina lysis panel , auto Unknown Analyte Negati ve Not Available [facility] [address], [place], [address], 01/17/2023 14:18:43 01/18/20 23 01/17/2023 urina lysis panel , auto Unknown Analyte 250 mg/dl Not Available [facility] [address], [place], [address], 01/17/2023 14:18:43 01/18/20 23 01/17/2023 urina lysis panel , auto Unknown Analyte Normal Not Available [facility] [address], [place], [address], 01/17/2023 14:18:43 01/18/20 23 01/17/2023 urina lysis panel , auto Unknown Analyte Negati ve Not Available [facility] [address], [place], [address], 01/17/2023 14:18:43 01/18/20 23 01/17/2023 urina lysis panel , auto Unknown Analyte Negati ve Not Available [facility] [address], [place], [address], 01/17/2023 14:18:43 01/18/20 23 01/17/2023 urina lysis panel , auto Unknown Analyte Normal Not Available [facility] [address], [place], [address], 01/17/2023 14:18:43 01/18/20 23 01/17/2023 urina lysis panel , auto Unknown Analyte Normal 1 mg/dl Not Available [facility] [address], [place], [address], 01/17/2023 14:18:43 01/18/20 23 01/17/2023 urina lysis panel , auto Unknown Analyte Negati ve Not Available [facility] [address], [place], [address], 01/17/2023 14:18:43 01/18/20 23 01/17/2023 urina lysis panel , auto Unknown Analyte Negati ve Not Available [facility] [address], [place], [address], 01/17/2023 14:18:43 01/18/20 23 01/17/2023 urina lysis panel , auto Unknown Analyte Trace Not Available [facility] [address], [place], [address], 01/17/2023 14:18:43 01/18/20 23 01/17/2023 urina lysis panel , auto Unknown Analyte Negati ve Not Available [facility] [address], [place], [address], 01/17/2023 14:18:43 07/19/20 23 07/19/2023 urina lysis panel , auto Unknown Analyte Clean Catch Not Available [facility] [address], [place], [address], 07/19/2023 14:40:49 07/19/20 23 07/19/2023 urina lysis panel , auto Unknown Analyte Yellow Not Available [facility] [address], [place], [address], 07/19/2023 14:40:49 07/19/20 23 07/19/2023 urina lysis panel , auto Unknown Analyte Clear Not Available [facility] [address], [place], [address], 07/19/2023 14:40:49 07/19/20 23 07/19/2023 urina lysis panel , auto Unknown Analyte 1.015 Not Available [facility] [address], [place], [address], 07/19/2023 14:40:49 07/19/20 23 07/19/2023 urina lysis panel , auto Unknown Analyte 1.003- 1.035 Not Available [facility] [address], [place], [address], 07/19/2023 14:40:49 07/19/20 23 07/19/2023 urina lysis panel , auto Unknown Analyte 5.0 Not Available [facility] [address], [place], [address], 07/19/2023 14:40:49 07/19/20 23 07/19/2023 urina lysis panel , auto Unknown Analyte 5.0-8. 0 Not Available [facility] [address], [place], [address], 07/19/2023 14:40:49 07/19/20 23 07/19/2023 urina lysis panel , auto Unknown Analyte Negati ve Not Available [facility] [address], [place], [address], 07/19/2023 14:40:49 07/19/20 23 07/19/2023 urina lysis panel , auto Unknown Analyte Negati ve Not Available [facility] [address], [place], [address], 07/19/2023 14:40:49 07/19/20 23 07/19/2023 urina lysis panel , auto Unknown Analyte Negati ve Not Available [facility] [address], [place], [address], 07/19/2023 14:40:49 07/19/20 23 07/19/2023 urina lysis panel , auto Unknown Analyte Negati ve Not Available [facility] [address], [place], [address], 07/19/2023 14:40:49 07/19/20 23 07/19/2023 urina lysis panel , auto Unknown Analyte Negati ve Not Available [facility] [address], [place], [address], 07/19/2023 14:40:49 07/19/20 23 07/19/2023 urina lysis panel , auto Unknown Analyte Negati ve Not Available [facility] [address], [place], [address], 07/19/2023 14:40:49 07/19/20 23 07/19/2023 urina lysis panel , auto Unknown Analyte >1000 mg/dl Not Available [facility] [address], [place], [address], 07/19/2023 14:40:49 07/19/20 23 07/19/2023 urina lysis panel , auto Unknown Analyte Normal Not Available [facility] [address], [place], [address], 07/19/2023 14:40:49 07/19/20 23 07/19/2023 urina lysis panel , auto Unknown Analyte Negati ve Not Available [facility] [address], [place], [address], 07/19/2023 14:40:49 07/19/20 23 07/19/2023 urina lysis panel , auto Unknown Analyte Negati ve Not Available [facility] [address], [place], [address], 07/19/2023 14:40:49 07/19/20 23 07/19/2023 urina lysis panel , auto Unknown Analyte Normal Not Available [facility] [address], [place], [address], 07/19/2023 14:40:49 07/19/20 23 07/19/2023 urina lysis panel , auto Unknown Analyte Normal 1 mg/dl Not Available [facility] [address], [place], [address], 07/19/2023 14:40:49 07/19/20 23 07/19/2023 urina lysis panel , auto Unknown Analyte Negati ve Not Available [facility] [address], [place], [address], 07/19/2023 14:40:49 07/19/20 23 07/19/2023 urina lysis panel , auto Unknown Analyte Negati ve Not Available [facility] [address], [place], [address], 07/19/2023 14:40:49 07/19/20 23 07/19/2023 urina lysis panel , auto Unknown Analyte Negati ve Not Available [facility] [address], [place], [address], 07/19/2023 14:40:49 07/19/20 23 07/19/2023 urina lysis panel , auto Unknown Analyte Negati ve Not Available [facility] [address], [place], [address], 07/19/2023 14:40:49 02/01/20 24 02/01/2024 urina lysis panel , auto Unknown Analyte Clean Catch Not Available [facility] [address], [place], [address], 02/01/2024 16:07:53 02/01/20 24 02/01/2024 urina lysis panel , auto Unknown Analyte Yellow Not Available [facility] [address], [place], [address], 02/01/2024 16:07:53 02/01/20 24 02/01/2024 urina lysis panel , auto Unknown Analyte Clear Not Available [facility] [address], [place], [address], 02/01/2024 16:07:53 02/01/20 24 02/01/2024 urina lysis panel , auto Unknown Analyte 1.020 Not Available [facility] [address], [place], [address], 02/01/2024 16:07:53 02/01/20 24 02/01/2024 urina lysis panel , auto Unknown Analyte 1.003- 1.035 Not Available [facility] [address], [place], [address], 02/01/2024 16:07:53 02/01/20 24 02/01/2024 urina lysis panel , auto Unknown Analyte 5.0 Not Available [facility] [address], [place], [address], 02/01/2024 16:07:53 02/01/20 24 02/01/2024 urina lysis panel , auto Unknown Analyte 5.0-8. 0 Not Available [facility] [address], [place], [address], 02/01/2024 16:07:53 02/01/20 24 02/01/2024 urina lysis panel , auto Unknown Analyte Negati ve Not Available [facility] [address], [place], [address], 02/01/2024 16:07:53 02/01/20 24 02/01/2024 urina lysis panel , auto Unknown Analyte Negati ve Not Available [facility] [address], [place], [address], 02/01/2024 16:07:53 02/01/20 24 02/01/2024 urina lysis panel , auto Unknown Analyte Negati ve Not Available [facility] [address], [place], [address], 02/01/2024 16:07:53 02/01/20 24 02/01/2024 urina lysis panel , auto Unknown Analyte Negati ve Not Available [facility] [address], [place], [address], 02/01/2024 16:07:53 02/01/20 24 02/01/2024 urina lysis panel , auto Unknown Analyte Negati ve Not Available [facility] [address], [place], [address], 02/01/2024 16:07:53 02/01/20 24 02/01/2024 urina lysis panel , auto Unknown Analyte Negati ve Not Available [facility] [address], [place], [address], 02/01/2024 16:07:53 02/01/20 24 02/01/2024 urina lysis panel , auto Unknown Analyte Normal Not Available [facility] [facility] [address], [place], [address], 02/01/2024 16:07:53 02/01/20 24 02/01/2024 urina lysis panel , auto Unknown Analyte Normal Not Available [facility] [address], [place], [address], 02/01/2024 16:07:53 02/01/20 24 02/01/2024 urina lysis panel , auto Unknown Analyte Negati ve Not Available [facility] [address], [place], [address], 02/01/2024 16:07:53 02/01/20 24 02/01/2024 urina lysis panel , auto Unknown Analyte Negati ve Not Available [facility] [address], [place], [address], 02/01/2024 16:07:53 02/01/20 24 02/01/2024 urina lysis panel , auto Unknown Analyte Normal Not Available [facility] [address], [place], [address], 02/01/2024 16:07:53 02/01/20 24 02/01/2024 urina lysis panel , auto Unknown Analyte Normal 1 mg/dl Not Available [facility] [address], [place], [address], 02/01/2024 16:07:53 02/01/20 24 02/01/2024 urina lysis panel , auto Unknown Analyte Negati ve Not Available [facility] [address], [place], [address], 02/01/2024 16:07:53 02/01/20 24 02/01/2024 urina lysis panel , auto Unknown Analyte Negati ve Not Available [facility] [address], [place], [address], 02/01/2024 16:07:53 02/01/20 24 02/01/2024 urina lysis panel , auto Unknown Analyte Negati ve Not Available [facility] [address], [place], [address], 02/01/2024 16:07:53 02/01/20 24 02/01/2024 urina lysis panel , auto Unknown Analyte Negati ve Not Available [facility] [address], [place], [address], 02/01/2024 16:07:53 07/25/20 24 07/25/2024 urina lysis panel , auto Unknown Analyte Clean Catch Not Available [facility] [address], [place], [address], 07/25/2024 16:21:12 07/25/20 24 07/25/2024 urina lysis panel , auto Unknown Analyte Yellow Not Available [facility] [address], [place], [address], 07/25/2024 16:21:12 07/25/20 24 07/25/2024 urina lysis panel , auto Unknown Analyte Clear Not Available [facility] [address], [place], [address], 07/25/2024 16:21:12 07/25/20 24 07/25/2024 urina lysis panel , auto Unknown Analyte 1.020 Not Available [facility] [address], [place], [address], 07/25/2024 16:21:12 07/25/20 24 07/25/2024 urina lysis panel , auto Unknown Analyte 1.003- 1.035 Not Available [facility] [address], [place], [address], 07/25/2024 16:21:12 07/25/20 24 07/25/2024 urina lysis panel , auto Unknown Analyte 5.0 Not Available [facility] [address], [place], [address], 07/25/2024 16:21:12 07/25/20 24 07/25/2024 urina lysis panel , auto Unknown Analyte 5.0-8. 0 Not Available [facility] [address], [place], [address], 07/25/2024 16:21:12 07/25/20 24 07/25/2024 urina lysis panel , auto Unknown Analyte Negati ve Not Available [facility] [address], [place], [address], 07/25/2024 16:21:12 07/25/20 24 07/25/2024 urina lysis panel , auto Unknown Analyte Negati ve Not Available [facility] [address], [place], [address], 07/25/2024 16:21:12 07/25/20 24 07/25/2024 urina lysis panel , auto Unknown Analyte Negati ve Not Available [facility] [address], [place], [address], 07/25/2024 16:21:12 07/25/20 24 07/25/2024 urina lysis panel , auto Unknown Analyte Negati ve Not Available [facility] [address], [place], [address], 07/25/2024 16:21:12 07/25/20 24 07/25/2024 urina lysis panel , auto Unknown Analyte Trace Not Available [facility] [address], [place], [address], 07/25/2024 16:21:12 07/25/20 24 07/25/2024 urina lysis panel , auto Unknown Analyte Negati ve Not Available [facility] [address], [place], [address], 07/25/2024 16:21:12 07/25/20 24 07/25/2024 urina lysis panel , auto Unknown Analyte Normal Not Available [facility] [address], [place], [address], 07/25/2024 16:21:12 07/25/20 24 07/25/2024 urina lysis panel , auto Unknown Analyte Normal Not Available [facility] [address], [place], [address], 07/25/2024 16:21:12 07/25/20 24 07/25/2024 urina lysis panel , auto Unknown Analyte Negati ve Not Available [facility] [address], [place], [address], 07/25/2024 16:21:12 07/25/20 24 07/25/2024 urina lysis panel , auto Unknown Analyte Negati ve Not Available [facility] [address], [place], [address], 07/25/2024 16:21:12 07/25/20 24 07/25/2024 urina lysis panel , auto Unknown Analyte Normal Not Available [facility] [address], [place], [address], 07/25/2024 16:21:12 07/25/20 24 07/25/2024 urina lysis panel , auto Unknown Analyte Normal 1 mg/dl Not Available [facility] [address], [place], [address], 07/25/2024 16:21:12 07/25/20 24 07/25/2024 urina lysis panel , auto Unknown Analyte Negati ve Not Available [facility] [address], [place], [address], 07/25/2024 16:21:12 07/25/20 24 07/25/2024 urina lysis panel , auto Unknown Analyte Negati ve Not Available [facility] [address], [place], [address], 07/25/2024 16:21:12 07/25/20 24 07/25/2024 urina lysis panel , auto Unknown Analyte Negati ve Not Available [facility] [address], [place], [address], 07/25/2024 16:21:12 07/25/20 24 07/25/2024 urina lysis panel , auto Unknown Analyte Negati ve Not Available [facility] [address], [place], [address], 07/25/2024 16:21:12 09/16/19 23 09/16/2022 CT, abdom en, w/wo contr ast No observ ation record ed. [email or web address] [facility] [address], [place], [address], 10/21/2022 13:43:51 01/14/20 23 01/13/2023 XR, chest , 2 view No observ ation record ed. [email or web address] [facility] [address], [place], [address], 01/24/2023 16:58:14 01/31/20 24 01/31/2024 XR, chest , 2 view No observ ation record ed. [email or web address] [facility] [address], [place], [address], 02/02/2024 12:49:56 07/24/20 24 07/24/2024 XR, chest , 2 view No observ ation record ed. [email or web address] Not Available 2023 13:01:44 Result Notes None recorded. Procedures Surgical History Date Name Laterality Status Provider Name and Address Organization Details Recorded Time procedure on knee completed Patricia Lazcano [facility] 05/03/2022 11:07:02 Imaging Results None recorded. Procedure [...] Updated DateTime 10/05/2022 172.72 cm 37.3 kg/m2 658998.13 g Galina Raines [facility] 10/05/2022 14:37:48 Date Recorded Body height Body mass index (BMI) Body weight Provider Name and Address Organization Details Last Updated DateTime 01/17/2023 172.72 cm 35.7 kg/m2 913981.21 g Brandi Moreno [facility] 01/17/2023 14:17:53 Date Recorded Body height Body mass index (BMI) Body weight Provider Name and Address Organization Details Last Updated DateTime 02/01/2024 172.72 cm 36.6 kg/m2 165692.76 g [place] Prajapatishaw [facility] 02/01/2024 16:13:54 Date Recorded Body height Body mass index (BMI) Body weight Provider Name and Address Organization Details Last Updated DateTime 07/19/2023 172.72 cm 37.6 kg/m2 062895.32 g [place] [facility] 07/19/2023 14:35:39 Date Recorded Body height Body mass index (BMI) Body weight Provider Name and Address Organization Details Last Updated DateTime 07/25/2024 172.72 cm 36.6 kg/m2 944492.76 g Patricia Lazcano [facility] 07/25/2024 16:20:11 Social History Question Answer Notes LastModified by Organizat ion Details LastModified Time Tobacco Smoking Status Current Every Day Smoker Patricia Lazcano [facility] 05/03/2022 11:06:52 What Is Your Relationship Status? [email or web address] Information not available 05/03/2022 How Much Tobacco Do You Smoke? 0.5 PPD [email or web address] Information not available 05/03/2022 Sex: Unknown Functional Status Question Answer Note LastModified by Organization D etails LastModified Time What is your level of alcohol consumption? None [email or web address] Information not available 05/03/2022 Mental Status None recorded. Family History Relationship Description Onset Age of this Age Resolved Age Notes LastModified by Organization Details LastModified Time Father No current problems or disability [email or web address] Not available 05/03 11:06:40 Mother No current problems or disability [email or web address] Not available 05/03 11:06:40 Medical History No medical history recorded. Past Encounters Encounter ID Performer Location Encounter Start Date Encounter Closed Date Diagnosis/Indication Diagnosis SNOMED-CT Code Diagnosis ICD10 Code Diagnosis Note [id number] MD [facility] [address] [place] [address] 05/03/2022 10:29:07 05/03/2022 11:39:21 Renal mass 188981531 N28.89 follow-up 1 week with his repeat CT scan [id number] MD [facility] [address] [address] 05/24/2022 10:19:38 05/24/2022 11:06:41 Renal mass [id number] N28.89 right-side d hand-calin fidencio laparoscop ic radical nephrectom y JAMAAL [id number] JUAN ADAMSON [facility] [address] [place] [address] 06/23/2022 15:16:42 06/23/2022 17:10:32 Renal cell carcinoma [id number] C64.9 Follow-up 3 months. He will have a chest x-ray and lab work at that time [id number] MD [facility] [address] [address] 10/05/2022 14:09:01 10/05/2022 17:30:30 Renal cell carcinoma [id number] C64.9 Follow-up 3 months. He will have a chest x-ray and lab work at that time Benign pro static hyperplasia with outflow obstruction 750903111 N40.1 [id number] JUAN ADAMSON MD [facility] [address] [address] 01/17/2023 13:51:49 01/17/2023 16:42:50 Renal cell carcinoma [id number] C64.9 Follow-up 6 months. Benign pro static hyperplasia with outflow obstruction 261146115 N40.1 Continue tamsulosin [id number] JUAN ADAMSON MD [facility] [address] [address] 07/19/2023 13:29:23 07/19/2023 15:42:58 Renal cell carcinoma [id number] C64.9 Follow-up 6 months. Benign pro static hyperplasia with outflow obstruction [id number] N40.1 Continue tamsulosin [id number] JUAN ADAMSON MD [facility] [address] [address] 02/01/2024 15:50:57 02/01/2024 16:33:09 Renal cell carcinoma [id number] C64.9 Follow-up 6 months. With chest x-ray prior to visit [id number] JUAN ADAMSON MD [facility] [address] [address] 07/25/2024 15:25:04 07/25/2024 17:03:40 Renal cell carcinoma [id number] C64.9 Follow-up 6 months. With chest x-ray prior to visit Health Concerns Section Related Observation LastModified by Organization Detai ls LastModified Time None Recorded Concern Status LastModified by Organization Details LastModified Time None Recorded Advance Directives Directive None Recorded Payers Insurance Date Sequence Insurance Name Policy Number Policy Cruz Covered Member ID Cruz Member ID Guarantor Name 01/23/2025 2 [facility] Anirudh Live [id number] Luis Live 01/23/2025 1 [place] Ed Kimberly Live [id number] Luis Live Notes Date Note Type Note [...] a trial of tamsulosin. JUAN ADAMSON MD [address] [place] [address], [address], [facility] 10/05/2022 18:25:56 01/17/2023 text/html Patient is here in follow-up of previous right radical nephrectomy for renal cell carcinoma. He had a repeat CT scan just prior to his last visit at the end of September. He had a chest x-ray last week which was reviewed. No obvious abnormalities noted. His chest x-ray was at [facility]. He has an upcoming physical by his PCP and we will await those labs, at his last visit in September started him on tamsulosin for obstructive urination symptoms. He has improved but still has nocturia 3-5 times per night. We discussed cystoscopy for further evaluation if this is bothersome. He is tolerant of symptoms. He will continue on tamsulosin. JUAN ADAMSON MD [address] [place] [address], [address], [facility] 01/17/2023 14:40:14 07/19/2023 [...] evaluation in the near future[place], [address], [facility] 07/19/2023 21:14:39 02/01/2024 text/html Patient is here in follow-up regarding previous right radical nephrectomy for renal cell carcinoma. He had a chest x-ray at [facility] yesterday which was unremarkable. He has had recent lab work which was all acceptable. He takes tamsulosin for mild obstructive symptoms and typically has nocturia x 1. His urine specimen today is unremarkable. We discussed continued surveillance. He remains active. JUAN ADAMSON MD [facility] [place], [address], [facility] 02/01/2024 23:58:37 07/25/2024 text/html Patient is here for scheduled 6-month follow-up. He is now 2 years following right-sided radical nephrectomy for renal cell carcinoma. He feels well. He had a recent chest x-ray at [facility] which showed no acute processes. He has had recent lab work which was acceptable. [place], [address], [facility] 07/26/2024 22:49:36
--- OUTSIDE RECORDS SUMMARY | 2025-02-21 11:34 | XMS_ITS | Clinical Summary ---
Author Organization [employer] ([place], [place], [place], [place]) Address [address] [place] [address] Care Team Providers Care Assistant Professor Of Economics Name Role Phone Humberto Self MD Primary Care Provider [phone] Allergies No known active allergies Medications No [...] often do you attend chur ch or mandaeism services? Never 06/01/2022 Do you belong to [...] Date Lauro rded Speak language other than Ukrainian at home Not on file 08/26/2023 Want [...] 1974 Shingles Vaccine (Zoster) (1 of 2) 2005 Tobacco Cessation Counseling and Screening (12+) 06/01/2023 06/01/2022 COVID-19 VACCINE (3 - season) 04/08/202401/2021, 10/24/2020 Falls Risk Screening 08/08/2024 Influenza Vaccine (#1) 2025 Respiratory Syncytial Virus (RSV) Adult or (1 - 1-dose 75+ series) 2030 Insurance MEDICARE [place] [address] [address] SUPP Care Teams Assistant Professor Of Economics Relationship Specialty Start Date End Date Humberto Self MD [address] [place] [address] PCP - General Family Medicine 06/01/22
[2025-02-21 12:07] LABS: Hematocrit 46.5 % (42.0-52.0); Hemoglobin 16.1 g/dL (14.1-18.0); Immature Granulocytes % 0.5 %; Mean Corpuscular HGB Conc 34.6 g/dL (31.8-35.4); Mean Corpuscular Hemoglobin 29.8 pg (27.0-31.2); Mean Corpuscular Volume 86.1 fl (80-94); Nucleated Red Blood Cells % 0 %; Platelet Count 187 K/mm3 (142-424); Red Blood Count 5.40 M/mm3 (4.60-6.20); Red Cell Distribution Width-SD 40.0 fL; White Blood Count 9.9 K/mm3 (4.8-10.8)
[2025-02-21 12:25] LABS: Chloride 104 mmol/L (98-107)
[2025-02-21 12:26] LABS: Albumin Level 4.2 g/dl (3.5-5.0); Potassium 4.8 mmoL/L (3.5-5.1); Sodium 139 mmol/L (136-145)
[2025-02-21 12:28] LABS: Alanine Aminotransferase 27 U/L (12-78); Anion Gap 14.8 mEq/L (5-15); Aspartate Amino Transferase 32 U/L (17-59); Blood Urea Nitrogen 29 mg/dl (9-20); Carbon Dioxide 25 mmol/L (22.0-30.0); Creatinine,Serum 1.80 mg/dl (0.66-1.25); Estimated Glomerular Filt Rate 38 ml/min (>60); GFR (African American) 45 ML/MIN (>60)
[2025-02-21 12:29] LABS: Albumin/Globulin Ratio 1.6 (1.1-1.8); Alkaline Phosphatase 116 U/L (38-126); Bilirubin,Total 1.6 mg/dl (0.2-1.3); Calcium 10.2 mg/dl (8.4-10.2); Globulin 2.7 g/dL (1.3-3.2); Glucose 120 mg/dl (74-100); Total Protein,Serum 6.9 g/dl (6.3-8.2)
== END 2025-02-21 23:59 | disposition home or self-care (01) ==
LOC: LAB 11:33
PROVIDERS: PCP Family Medicine; Visit Provider Internal Medicine
DX: I21.3 ST elevation (STEMI) myocardial infarction of unspecified site (principal)
CPT/HCPCS: 36415; 80053; 85025

== ENCOUNTER 2025-03-12 12:39 | Outpatient (CLI) | payer MEDICARE, SELFPAY ==
--- OUTSIDE RECORDS SUMMARY | 2025-03-12 12:45 | XMS_ITS | Clinical Summary ---
Author Organization [employer] ([place], [place], [place], [place]) Address [address] [place] [address] Care Team Providers Care It Infrastructure Specialist Name Role Phone Humberto Self MD Primary Care Provider [phone] Allergies No known active allergies Medications No [...] often do you attend chur ch or jew services? Never 06/01/2022 Do you belong to any clubs o r organizations such as yazidi groups, unions, fraternal or athletic groups, or [...] Date Lauro rded Speak language other than Uruguayan at home Not on file 08/26/2023 Want [...] series) 2030 Insurance [place] [address] [place] [id number] SUPP Care Teams It Infrastructure Specialist Relationship Specialty Start Date End Date Humberto Self MD [address] [place] [address] PCP - General Family Medicine 06/01/22
--- OUTSIDE RECORDS SUMMARY | 2025-03-12 12:45 | XMS_ITS | Referral Summary ---
Author Organization [employer] ([place], [place], [place], [place]) Address [address] [place] [address] Care Team Providers Care Frame Stripper And Crusher Name Role Phone Humberto eSlf MD Primary Care Provider [phone] Allergies No known active allergies Medications No [...] How often do you attend chur or rastafari services? Never 06/01/2022 Do you belong to any clubs o r organizations such as jew groups, unions, fraternal or athletic groups, or [...] Date Lauro rded Speak language other than Wolof at home Not on file 08/26/2023 Want [...] Insurance MEDICARE PART A B Care Teams Frame Stripper And Crusher Relationship Specialty Start Date End Date Humberto Self MD [address] [place] [address] PCP - General Family Medicine 06/01/22
--- NOTE | 2025-03-12 12:46 | XR_ITS ---
FINAL REPORT CLINICAL HISTORY: CHEST DISCOMFORT. HARD TIME BREATHING AND TIGHTNESS IN CHEST. DEEP COUGH. PATIENT HAD 2 STINTS PUT IN ON FEBRUARY 15 (FROM A HEART ATTACK) AND PATIENT STATED THAT ALL OF THESE SYMPTOMS STARTED AFTER SURGERY. COMPARISON: 07/24/2024 FINDINGS: 2 views of the chest were obtained . The heart is normal in size. There is a calcified right hilar lymph node. The mediastinum is within normal limits. The lungs are clear. There is no pneumothorax. Osseous structures are unremarkable. IMPRESSION: No acute cardiopulmonary process. Reviewed, Interpreted and Dictated by Jason Bhatt MD Transcribed by Lynsey Wynne Authenticated and [facility]
== END 2025-03-12 23:59 | disposition home or self-care (01) ==
LOC: RAD 12:42
PROVIDERS: PCP Family Medicine; Visit Provider Family Medicine
DX: R07.89 Other chest pain (principal); R06.00 Dyspnea, unspecified; R05.8 Other specified cough; Z95.5 Presence of coronary angioplasty implant and graft
CPT/HCPCS: 71046